=== PATIENT | female | born 1940 | race Caucasian/White ===

== ENCOUNTER 2019-01-25 12:50 | Outpatient (CLI) | payer MEDICARE, SELFPAY ==
[2019-01-25 14:04] LABS: Basophils Percent Auto 0.6 % (0.2-1.2); Eosinophils Absolute Auto 0.1 K/mm3 (0-0.3); Eosinophils Percent Auto 1.9 % (0-4.4); Hematocrit 42.8 % (37.0-47.0); Hemoglobin 14.3 g/dL (12.0-15.0); Immature Granulocyte Absolute 0.01 K/mm3 (0.00-0.031); Immature Granulocyte Percent A 0.2 % (0-0.5); Lymphocytes Absolute Auto 2.19 K/mm3 (0.9-3.2); Lymphocytes Percent Auto 35.2 % (18.3-44.2); Mean Corpuscular HGB Conc 33.4 g/dl (32-36); Mean Corpuscular Hemoglobin 32.7 pg (26-34); Mean Corpuscular Volume 97.9 fl (80-100); Mean Platelet Volume 9.7 fl (7.4-10.4); Monocytes Absolute Auto 0.6 K/mm3 (0.1-0.6); Monocytes Percent Auto 9.6 % (2.6-8.5); Neutrophils Absolute Auto 3.3 K/mm3 (1.3-6.7); Neutrophils Percent Auto 52.5 % (45.5-73.1); Platelet Count Result 285 k/mm3 (150-375); Red Blood Count 4.37 M/mm3 (4.2-5.4); Red Cell Distribution Width 12.4 % (11.5-14.5); White Blood Count 6.2 K/mm3 (4.5-10.0)
[2019-01-25 14:13] LABS: INR 0.9; Partial Thromboplastin Time 24.9 SECONDS (22.3-36.8); Prothrombin Time 11.7 Seconds (11.1-14.7)
== END 2019-01-25 12:51 | disposition home or self-care (01) ==
PROVIDERS: PCP Family Medicine; Visit Provider Urology
DX: Z01.818 Encounter for other preprocedural examination (principal); N81.10 Cystocele, unspecified
CPT/HCPCS: 36415; 85025; 85610; 85730; 86850; 86900; 86901; 87077; 87086; 87088; 87186

== ENCOUNTER 2019-10-25 14:17 | Outpatient (CLI) | payer MEDICARE, SELFPAY ==
[2019-10-25 15:09] LABS: Anion Gap 11.3 mmol/L (7-16); Blood Urea Nitrogen 20 mg/dL (7-17); Calcium 9.3 mg/dL (8.4-10.2); Carbon Dioxide 29 mmol/L (22-30); Chloride 102 mmol/L (98-107); Estimated Glomerular Filt Rate > 60; Glucose 87 mg/dL (65-105); Potassium 4.3 mmol/L (3.4-5.0); Sodium 138 mmol/L (137-145)
[2019-10-25 15:11] LABS: Basophils Percent Auto 0.4 % (0.2-1.2); Eosinophils Absolute Auto 0.2 K/mm3 (0-0.3); Eosinophils Percent Auto 2.5 % (0-4.4); Hematocrit 43.3 % (37.0-47.0); Hemoglobin 14.7 g/dL (12.0-15.0); Immature Granulocyte Absolute 0.01 K/mm3 (0.00-0.031); Immature Granulocyte Percent A 0.1 % (0-0.5); Lymphocytes Percent Auto 37.6 % (18.3-44.2); Mean Corpuscular HGB Conc 33.9 g/dl (32-36); Mean Corpuscular Hemoglobin 32.8 pg (26-34); Mean Corpuscular Volume 96.7 fl (80-100); Mean Platelet Volume 10.1 fl (7.4-10.4); Monocytes Absolute Auto 0.6 K/mm3 (0.1-0.6); Neutrophils Absolute Auto 3.5 K/mm3 (1.3-6.7); Neutrophils Percent Auto 50.4 % (45.5-73.1); Platelet Count Result 296 k/mm3 (150-375); Red Blood Count 4.48 M/mm3 (4.2-5.4); Red Cell Distribution Width 12.4 % (11.5-14.5); White Blood Count 6.9 K/mm3 (4.5-10.0)
[2019-10-25 18:38] LABS: Vitamin D 25 Hydroxy 33.7 ng/mL
== END 2019-10-25 14:18 | disposition home or self-care (01) ==
PROVIDERS: PCP Family Medicine; Visit Provider Physician Assistant Medical
DX: R09.89 Other specified symptoms and signs involving the circulatory and respiratory systems (principal); R42 Dizziness and giddiness; E55.9 Vitamin D deficiency, unspecified
CPT/HCPCS: 36415; 80048; 82306; 82607; 84443; 85025

== ENCOUNTER 2019-11-13 12:29 | Outpatient (CLI) | payer MEDICARE, SELFPAY ==
--- NOTE | ~2019-11-13 | US_ITS ---
EXAMINATION: US carotid duplex BI DATE: 11/13/2019 13:13 INDICATION: Other specified symptoms and signs involving the circulatory system. TECHNIQUE: Grayscale, color Doppler, and pulsed Doppler images of the cervical carotid arteries were obtained. The degree of vessel stenosis is placed in one of the following categories: normal, <50%, 5 0-69%, >=70% but less than near-occlusion, near-occlusion, or total occlusion. Note that percent sten osis relative to normal distal artery lumen diameter is indirectly measured from velocity measurement s as described by Tylor, et al. Radiology 2003; 229:340-346. COMPARISON: None. FINDINGS: RIGHT: The right common carotid artery (CCA) peak systolic velocity (PSV) is 81 cm/s. The right internal car otid artery (ICA) PSV is 128 cm/s. The right ICA end-diastolic velocity (EDV) is 53 cm/s. The right I CA/CCA PSV ratio is 1.6. Grayscale and color Doppler images yield an estimate of <50% diameter reduct ion from plaque in the ICA. There is antegrade flow in the right vertebral artery. LEFT: The left CCA PSV is 84 cm/s. The left ICA PSV is 160 cm/s. The left ICA EDV is 35 cm/s. The left ICA/ CCA PSV ratio is 1.9. Grayscale and color Doppler images yield an estimate of <50% diameter reduction from plaque in the ICA. There is antegrade flow in the left vertebral artery. IMPRESSION: 1. <50% stenosis in the right internal carotid artery. 2. <50% stenosis in the left internal carotid artery. Reviewed, dictated and finalized at location A.
== END 2019-11-13 12:30 | disposition home or self-care (01) ==
LOC: ANHIMG 12:34
PROVIDERS: PCP Family Medicine; Visit Provider Physician Assistant Medical
DX: R09.89 Other specified symptoms and signs involving the circulatory and respiratory systems (principal); R42 Dizziness and giddiness; I65.23 Occlusion and stenosis of bilateral carotid arteries
CPT/HCPCS: 93880

== ENCOUNTER 2019-11-19 13:23 | Outpatient (CLI) | payer MEDICARE, SELFPAY ==
[2019-11-19 14:37] LABS: Anion Gap 6 mmol/L (8-16); Blood Urea Nitrogen 21 mg/dL (7-17); Calcium 8.8 mg/dL (8.4-10.2); Carbon Dioxide 29 mmol/L (22-30); Chloride 103 mmol/L (98-107); Estimated Glomerular Filt Rate 54; Glucose 99 mg/dL (65-105); Potassium 4.1 mmol/L (3.4-5.0); Sodium 138 mmol/L (137-145)
== END 2019-11-19 13:24 | disposition home or self-care (01) ==
LOC: ANHLAB 13:28
PROVIDERS: PCP Family Medicine; Visit Provider Physician Assistant Medical
DX: N28.9 Disorder of kidney and ureter, unspecified (principal)
CPT/HCPCS: 36415; 80048

== ENCOUNTER 2019-12-16 14:35 | Outpatient (CLI) | payer MEDICARE, SELFPAY ==
--- NOTE | 2019-12-16 14:56 | ECHO_ITS ---
Patient Info Name: Sarah Armas Age: 79 years : 1940 Gender: Female Ht: 63 in Wt: 112 lbs BSA: 1.50 m2 HR: 90 bpm BP: 130 / 70 mmHg Heart Rhythm: Sinus Rhythm Technical Quality: Good Exam Date: 12/16/2019 3:08 PM Exam Location: [facility] Pulmonary Patient Status: Outpatient Admit Date: 12/16/2019 Staff Ordering Physician: Shanna Marrufo PAC Professor Of Food Biochemistry: Alo Aldridge RDCS Attending Provider: Shanna Marrufo Referring Physician: Yaron HAMILTON; Exam Type: CA echo doppler color flow Study Info Indications R06.02 - Shortness of breath Complete two-dimensional, color flow and Doppler transthoracic echocardiogram is performed. Strain analysis performed. History/Risk Factors Shortness of breath, Dizziness. Summary 1. Complete two-dimensional, color flow and Doppler transthoracic echocardiogram is performed. 2. Left ventricular chamber dimension is normal. 3. Left ventricular systolic function is normal, estimated at 60-65%. 4. There is mildly increased left ventricular wall thickness. 5. The left ventricular diastolic function is grade I diastolic dysfunction. 6. E/e' 8 is minimally elevated. 7. Global longitudinal strain is normal at -17.9%. 8. There is mild aortic valve sclerosis. 9. No pulmonary hypertension, estimated pulmonary arterial systolic pressure is 32 mmHg. Left Ventricle E/e' 8 is minimally elevated. Global longitudinal strain is normal at -17.9%. Left ventricular chamber dimension is normal. Left ventricular systolic function is normal, estimated at 60-65%. There is mildly increased left ventricular wall thickness. The left ventricular diastolic function is grade I diastolic dysfunction. Right Ventricle Right ventricular chamber dimension is normal. Right ventricular systolic function is normal. Left Atria Left atrial chamber dimension is normal. Right Atria Right atrial chamber dimension is normal. Aortic Valve The aortic valve is trileaflet. There is mild aortic valve sclerosis. There is no aortic valve stenosis. There is no aortic valve regurgitation. Pulmonic Valve There is no pulmonic regurgitation. Mitral Valve There is no mitral valve stenosis. There is no mitral valve regurgitation. Tricuspid Valve There is no tricuspid valve regurgitation. No pulmonary hypertension, estimated pulmonary arterial systolic pressure is 32 mmHg. Pericardium/Pleural There is no pericardial effusion. Inferior Vena Cava Normal inferior vena cava with >50% collapse upon inspiration consistent with normal right atrial pressure, 5 mmHg. Aorta The aortic root size at the sinus of Valsalva is normal. Left Ventricular Outflow Tract Name Value Normal LVOT 2D LVOT Diameter 1.7 cm LVOT Doppler LVOT Peak Gradient 4 mmHg LVOT Mean Gradient 2 mmHg LVOT VTI 20 cm LVOT VTI/AV VTI Ratio 0.7 LVOT Stroke Volume 48 ml LVOT CO 3.9 l/min LVOT CI
== END 2019-12-16 14:36 | disposition home or self-care (01) ==
PROVIDERS: PCP Family Medicine; Visit Provider Physician Assistant Medical
DX: R06.02 Shortness of breath (principal)
CPT/HCPCS: 93306

== ENCOUNTER → 2020-04-07 13:10 | Outpatient (CLI) | payer MEDICARE, SELFPAY ==
--- NOTE | ~2020-04-07 | MM_ITS ---
EXAMINATION: MM screening terri BI w ana HISTORY: Screening TECHNIQUE: Craniocaudal and mediolateral oblique 3-D tomosynthesis images were obtained and synthetic 2-D images were generated. CAD analysis was submitted and interpreted. COMPARISON: Comparison to multiple prior studies sequentially, with oldest reviewed study dated 08/04. BREAST PARENCHYMAL COMPOSITION: There are scattered areas of fibroglandular density. FINDINGS: There is no evidence of suspicious mass, calcification, or architectural distortion to sugg est malignancy in either breast. There has been no suspicious interval change. IMPRESSION: 1. No mammographic evidence of malignancy. 2. Recommend routine screening mammography in one year. BI-RADS Category 1: Negative Reviewed, dictated and finalized at location A. WRITER
== END ==
PROVIDERS: Visit Provider Obstetrics & Gynecology Gynecology
DX: Z12.31 Encounter for screening mammogram for malignant neoplasm of breast (principal)
CPT/HCPCS: 77063; 77067

== ENCOUNTER 2020-08-06 12:03 | Outpatient (CLI) | payer MEDICARE, SELFPAY ==
[2020-08-06 12:23] LABS: Basophils Absolute Auto 0.1 K/mm3 (0.0-0.1); Basophils Percent Auto 0.7 % (0.2-1.2); Eosinophils Absolute Auto 0.1 K/mm3 (0-0.3); Eosinophils Percent Auto 0.8 % (0-4.4); Hemoglobin 13.7 g/dL (12.0-15.0); Immature Granulocyte Absolute 0.02 K/mm3 (0.00-0.031); Immature Granulocyte Percent A 0.3 % (0-0.5); Lymphocytes Absolute Auto 2.78 K/mm3 (0.9-3.2); Mean Corpuscular HGB Conc 33.4 g/dl (32-36); Mean Corpuscular Hemoglobin 32.5 pg (26-34); Mean Corpuscular Volume 97.2 fl (80-100); Mean Platelet Volume 9.1 fl (7.4-10.4); Monocytes Absolute Auto 0.7 K/mm3 (0.1-0.6); Monocytes Percent Auto 8.9 % (2.6-8.5); Neutrophils Absolute Auto 3.8 K/mm3 (1.3-6.7); Neutrophils Percent Auto 51.3 % (45.5-73.1); Platelet Count Result 311 k/mm3 (150-375); Red Blood Count 4.22 M/mm3 (4.2-5.4); Red Cell Distribution Width 12.6 % (11.5-14.5); White Blood Count 7.3 K/mm3 (4.5-10.0)
[2020-08-06 12:36] LABS: CRP 0.8 mg/dL (<1.0); Rheumatoid Factor < 8.6 IU/ML (<12); Uric Acid 4.3 mg/dL (2.5-7.5)
[2020-08-06 13:52] LABS: Erythrocyte Sedimentation Rate 21 mm/hr (0-20)
== END 2020-08-06 12:04 | disposition home or self-care (01) ==
PROVIDERS: PCP Family Medicine; Visit Provider Orthopaedic Surgery
DX: M17.0 Bilateral primary osteoarthritis of knee (principal); M06.9 Rheumatoid arthritis, unspecified; E04.9 Nontoxic goiter, unspecified
CPT/HCPCS: 36415; 84550; 85025; 85652; 86038; 86140; 86430

== ENCOUNTER 2021-07-21 07:45 | Outpatient (CLI) | payer MEDICARE, SELFPAY ==
[2021-07-21 08:53] LABS: Basophils Absolute Auto 0.1 K/mm3 (0.0-0.1); Basophils Percent Auto 0.8 % (0.2-1.2); Eosinophils Absolute Auto 0.2 K/mm3 (0-0.3); Eosinophils Percent Auto 2.7 % (0-4.4); Hematocrit 41.5 % (37.0-47.0); Hemoglobin 13.5 g/dL (12.0-15.0); Immature Granulocyte Absolute 0.02 K/mm3 (0.00-0.031); Immature Granulocyte Percent A 0.3 % (0-0.5); Lymphocytes Absolute Auto 2.66 K/mm3 (0.9-3.2); Lymphocytes Percent Auto 42.8 % (18.3-44.2); Mean Corpuscular HGB Conc 32.5 g/dl (32-36); Mean Corpuscular Hemoglobin 32.8 pg (26-34); Mean Platelet Volume 9.7 fl (7.4-10.4); Monocytes Absolute Auto 0.6 K/mm3 (0.1-0.6); Neutrophils Absolute Auto 2.8 K/mm3 (1.3-6.7); Neutrophils Percent Auto 44.4 % (45.5-73.1); Platelet Count Result 263 k/mm3 (150-375); Red Blood Count 4.11 M/mm3 (4.2-5.4); Red Cell Distribution Width 12.8 % (11.5-14.5); White Blood Count 6.2 K/mm3 (4.5-10.0)
[2021-07-21 09:08] LABS: Anion Gap 7 mmol/L (8-16); Blood Urea Nitrogen 18 mg/dL (7-17); Calcium 8.7 mg/dL (8.4-10.2); Carbon Dioxide 27 mmol/L (22-30); Chloride 104 mmol/L (98-107); Cholesterol 257 mg/dL (0-200); Estimated Glomerular Filt Rate > 60; Glucose 86 mg/dL (65-110); HDL Direct 47 mg/dL; Sodium 138 mmol/L (137-145); Triglycerides 423 mg/dL (<150)
[2021-07-21 09:19] LABS: LDL Cholesterol Direct 131 mg/dL
== END 2021-07-21 07:46 | disposition home or self-care (01) ==
LOC: ANHLAB 07:49
PROVIDERS: PCP Family Medicine; Visit Provider Physician Assistant Medical
DX: E78.5 Hyperlipidemia, unspecified (principal); Z13.220 Encounter for screening for lipoid disorders; I10 Essential (primary) hypertension; E04.9 Nontoxic goiter, unspecified
CPT/HCPCS: 36415; 80048; 80061; 84443; 85025

== ENCOUNTER 2021-08-23 07:09 | Emergency (ER) | payer MEDICARE, SELFPAY ==
--- NOTE | ~2021-08-23 | XR_ITS ---
XR ankle RT min 3V DATE: 08/23/2021 07:30 INDICATION: Fall. Right ankle injury. TECHNIQUE: 4 views COMPARISON: None FINDINGS: There is prominent anterolateral soft tissue swelling of the right ankle. There is a linear oblique fracture of the lateral malleolus with less than one cortical width lateral displacement. The medial and posterior malleoli appear intact. The ankle mortise appears maintained. Plantar and posterior calcaneal enthesopathy. IMPRESSION: Minimally laterally displaced lateral malleolar fracture Reviewed, dictated and finalized at location A.
[2021-08-23 07:13] VITALS: BP 172/92; PULSE 88; RESP 18; TEMP 36.4; O2SAT 97
--- NOTE | 2021-08-23 07:22 | ED.LOWEXIN ---
HPI - Extremity Injury (Lower) General Chief Complaint: Extremity Injury, Lower Stated Complaint: Fall- ankle injury Time Seen by Provider: 08/23/21 07:13 History of Present Illness HPI Narrative: Patient was working out in the garden today when she lost her footing, and twisted her right ankle as she landed on some soft grass, she is denying any numbness or tingling anywhere, she is denying any pain when she does not use her foot, denies any injury anywhere else. Has not taken any medications for pain. Related Data Home Medications Medication Instructions Recorded Confirmed bimatoprost 0.01 % eye drops 1 drp ophthalmic (eye) QPM 01/25/19 07/20/21 (Lumigan) conjugated estrogens 0.625 mg 0.625 mg PO DAILY 01/25/19 07/20/21 tablet (Premarin) dorzolamide 22.3 mg-timolol 6.8 1 drp ophthalmic (eye) BID 01/25/19 07/20/21 mg/mL eye drops multivit with 1 tablet PO [id number] 01/25/19 07/20/21 sohtrbii-pocm-XD-lutein 8 mg iron-400 mcg-300 mcg tablet (Centrum Silver Women) netarsudil 0.02 % eye drops 1 drp RIGHT EYE QPM 01/25/19 07/20/21 (Rhopressa) omega 3-eql-nlh-fish oil 1,000 mg 1 cap PO DAILY 01/25/19 07/20/21 (120 mg-180 mg) capsule (Fish Oil) Allergies Allergy/AdvReac Type Severity Reaction Status Date / Time No Known Allergies Allergy Mild Verified 08/23/21 07:30 Review of Systems Review of Systems: M/S: Right ankle pain SKIN: No rash. [facility] Past Medical History Medical History Arthritis of right hip BMI (body mass index) 20.0-29.9 Cataract Surgical History Surgical History H/O: hysterectomy Hx of breast reduction, elective Hx of tonsillectomy Family History Family History Father Family history of premature coronary heart disease Acute myocardial infarction Tobacco abuse Mother Hypertension Sibling No problems noted. Social History Social History Second hand tobacco smoke exposure: Yes Alcohol intake: current Substance use: never Substance use type: does not use Additional occupation/education comments: Retired from [employer] Gender identity (if verbalized by the patient): Female Exam Narrative: EXAMINATION OF ORGAN SYSTEMS/BODY AREAS: Constitutional: Vital signs per nursing GENERAL:[No acute distress, non-toxic appearing.] HEAD: Normal with no signs of head trauma. LUNGS: Nonlabored breathing. HEART: Regular rate and rhythm EXT: Normal range of motion, some swelling to lateral aspect of right ankle, neurovascularly intact with normal DP pulses SKIN: No rashes or lesions. NEURO: Alert and oriented x 3. No gross focal sensory or strength deficits. PSYCH: Normal affect Course Vital Signs Vital signs: Vital Signs Temperature 97.5 F L 08/23/21 07:13 Pulse Rate 88 08/23/21 07:13 Respiratory Rate 18 08/23/21 07:13 Blood Pressure 172/92 H 08/23/21 07:13 Pulse Oximetry 97 08/23/21 07:13 Oxygen Delivery Room Air 08/23/21 07:13 Temperature 97.5 F L 08/23/21 07:13 Pulse Rate 84 08/23/21 09:19 Respiratory Rate 18 08/23/21 09:19 Blood Pressure 142/86 H 08/23/21 09:19 Pulse Oximetry 97 08/23/21 09:19 Oxygen Delivery Room Air 08/23/21 07:13 Procedures Orthopedic Splinting/Casting Injury #1: Splinting/Casting Date: 08/23/21 Side: right Lower Extremity Injury Location: ankle Lower Extremity Immobilizer: posterior splint and stirrup splint Splint: customized in ED Pre-Procedure Neuro Vascular Exam: normal Post-Procedure Neuro Vascular Exam: normal MDM - Extremity Injury (Lower) MDM Narrative Medical decision making narrative: 81-year-old female presenting with ankle pain after injury, exam does show swelling in the lateral malleo
[2021-08-23 08:17] VITALS: BP 148/85; PULSE 86; RESP 18; O2SAT 97
[2021-08-23 09:19] VITALS: BP 142/86; PULSE 84; RESP 18; O2SAT 97
== END 2021-08-23 09:22 | disposition home or self-care (01) ==
PROVIDERS: Emergency Provider Emergency Medicine; PCP Family Medicine
DX: S82.61XA Displaced fracture of lateral malleolus of right fibula, initial encounter for closed fracture (principal); M16.11 Unilateral primary osteoarthritis, right hip; H26.9 Unspecified cataract; Z77.22 Contact with and (suspected) exposure to environmental tobacco smoke (acute) (chronic); W18.39XA Other fall on same level, initial encounter; Y93.H2 Activity, gardening and landscaping
CPT/HCPCS: 29515; 73610; 99284

== ENCOUNTER 2021-08-30 09:15 | Outpatient (CLI) | payer MEDICARE, SELFPAY ==
[2021-08-30 10:43] LABS: Vitamin D 25 Hydroxy 42.4 ng/mL
== END 2021-08-30 09:16 | disposition home or self-care (01) ==
LOC: ANHLAB 09:18
PROVIDERS: PCP Family Medicine; Visit Provider Orthopaedic Surgery
DX: E55.9 Vitamin D deficiency, unspecified (principal)
CPT/HCPCS: 36415; 82306

== ENCOUNTER → 2021-11-11 14:59 | Outpatient (CLI) | payer MEDICARE, SELFPAY ==
--- NOTE | ~2021-11-11 | DEXA_ITS ---
Bone Density Report Name: KING LARSEN Age: 81 Sex: Female Ethnicity: White Date of : 1940 Indication: monitoring treatment; parental hip fracture; height loss; prior fracture; hysterectomy; postmenopausal Referring Provider: BRIANA WAN Study: Bone densitometry was performed. Exam Date: November 11, 2021 Accession number: [id number] Bone Density: Region BMD T-score Z-score Classification AP Spine (L1, L2) 1.101 1.1 3.6 Normal Femoral Neck (Left) 0.861 0.1 2.4 Normal Total Hip (Left) 0.995 0.4 2.5 Normal Femoral Neck (Right) 0.898 0.4 2.7 Normal Total Hip (Right) 0.934 -0.1 2.0 Normal Total Hip Mean 0.965 0.2 2.3 Normal World Health Organization criteria for BMD impression classify patients as: Normal (T-score at or above -1.0), Osteopenia (T-score between -1.0 and -2.5), or Osteoporosis (T-score at or below -2.5). 10-year Fracture Risk: FRAX not reported because: All T-scores for Spine Total, Hip Total, Femoral Neck at or above -1.0 Treated for osteoporosis Previous Exams: Region Exam Age BMD T-score BMD Change BMD Change Date g/cm2 vs Baseline vs Previous AP Spine(L1, L2) 11/11/2021 81 1.101 1.1 0.025* 0.025* 09/07/2017 77 1.076 0.9 Total Hip(Left) 11/11/2021 81 0.995 0.4 0.038* 0.038* 09/07/2017 77 0.957 0.1 Total Hip(Right) 11/11/2021 81 0.934 -0.1 0.020 0.020 09/07/2017 77 0.913 -0.2 *Denotes significance at 95% confidence level, LSC for AP Spine = 0.022 g/cm2, LSC for Total Hip = 0.027 g/cm2 Clinical Information Provided by Patient: Has had a low trauma fracture Parent has had a hip fracture Is being treated for osteoporosis Has used the following medications: HRT (i.e. estrogen/hormone therapy), MULT VIT Has the following medical conditions: Hysterectomy Patient maximum height was 63 Menopause Age: 30 No regular weight bearing exercise Drinks caffeinated beverages Onset of menses at age 14 Number of children 3 Impression: The patient has normal bone mass. The patient has risk factors, including: parental hip fracture, previous fracture. No significant bone loss was observed. Discussion: PATIENT UNDER TREATMENT WITH NO SIGNIFICANT BMD LOSS SINCE LAST EXAM. In an untreated patient, BMD typically declines with age. A lack of decline or gain is usually a sign that treatment is efficacious and fracture risk is reduced. It is important to
== END ==
PROVIDERS: PCP Family Medicine; Visit Provider Obstetrics & Gynecology Gynecology
DX: Z78.0 Asymptomatic menopausal state (principal)
CPT/HCPCS: 77080

== ENCOUNTER → 2022-03-14 12:21 | Outpatient (CLI) | payer MEDICARE, SELFPAY ==
--- NOTE | ~2022-03-14 | MM_ITS ---
EXAMINATION: MM screening terri BI w ana HISTORY: Screening TECHNIQUE: Craniocaudal and mediolateral oblique 3-D tomosynthesis images were obtained and synthetic 2-D images were generated. CAD analysis was submitted and interpreted. COMPARISON: Comparison to multiple prior studies sequentially, with oldest reviewed study dated 08/04. BREAST PARENCHYMAL COMPOSITION: There are scattered areas of fibroglandular density. FINDINGS: There is no evidence of suspicious mass, calcification, or architectural distortion to sugg est malignancy in either breast. There has been no suspicious interval change. IMPRESSION: 1. No mammographic evidence of malignancy. 2. Recommend routine screening mammography in one year. BI-RADS Category 1: Negative Reviewed, dictated and finalized at location A. ESTATE UNDERWRITER
== END ==
PROVIDERS: PCP Physician Assistant Medical; Visit Provider Obstetrics & Gynecology Gynecology
DX: Z12.31 Encounter for screening mammogram for malignant neoplasm of breast (principal)
CPT/HCPCS: 77063; 77067

== ENCOUNTER 2022-10-10 09:05 | Outpatient (CLI) | payer MEDICARE, SELFPAY ==
--- NOTE | ~2022-10-10 | US_ITS ---
EXAMINATION: US art doppler w press ANTONY RAINES DATE: 10/10/2022 10:31 INDICATION: Peripheral vascular disease. TECHNIQUE: Segmental pressures and plethysmographic and Doppler waveforms of the brachial and lower e xtremity arteries were obtained. COMPARISON: None. FINDINGS: Right and left brachial artery pressures of 140 mm Hg and 123 mm Hg, respectively, are concordant (no rmal difference <= 30 mmHg). The right high-thigh pressure index is 1.08 (normal > 1.2). The right ankle-brachial index (NAT) is 0 .61 (normal >= 0.9-1.0). The right great toe-brachial index (TBI) is 0.15 (normal >= 0.65). The right lower extremity segmental pressure gradients are increased between the upper thigh and lower thigh m easurements and between the lower thigh and below-knee measurements (normal gradients <= 20-30 mmHg b etween adjacent levels on the same leg or the same levels on the two legs). Arterial Doppler waveform s are biphasic from common femoral artery to the ankle. The left high-thigh pressure index is 1.02. The left NAT is 0.69. The left TBI is 0.24. The left lowe r extremity segmental pressure gradients are increased between the upper thigh and lower thigh measur ements. Arterial Doppler waveforms are biphasic from common femoral artery to the ankle. IMPRESSION: 1. 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 Reviewed, dictated and finalized at location A. IMPRESSION: 1. Moderately decreased ABIs, consistent with arterial occlusive disease, likel y multifocal.
== END 2022-10-10 09:06 | disposition home or self-care (01) ==
PROVIDERS: PCP Family Medicine; Visit Provider Orthopaedic Surgery
DX: I73.9 Peripheral vascular disease, unspecified (principal); R09.89 Other specified symptoms and signs involving the circulatory and respiratory systems
CPT/HCPCS: 93923

== ENCOUNTER 2022-11-16 07:55 | Outpatient (CLI) | payer MEDICARE, SELFPAY ==
--- NOTE | 2022-11-16 09:03 | ECG_ITS ---
Measurements Intervals [place] Rate: 71 P: 64 KS: 171 QRS: 3 QRSD: 118 T: 61 QT: 398 QTc: 433 Interpretive Statements SINUS RHYTHM LEFT BUNDLE BRANCH BLOCK NO PREVIOUS ECG AVAILABLE FOR COMPARISON Electronically Signed On 11-16-2022 11:50:36 CDT by Marleni Adamson M.D.
[2022-11-16 09:34] LABS: Basophils Absolute Auto 0.1 K/mm3 (0.0-0.1); Basophils Percent Auto 0.8 % (0.2-1.2); Eosinophils Absolute Auto 0.3 K/mm3 (0-0.3); Eosinophils Percent Auto 3.1 % (0-4.4); Hematocrit 38.7 % (37.0-47.0); Hemoglobin 12.4 g/dL (12.0-15.0); Immature Granulocyte Absolute 0.02 K/mm3 (0.00-0.031); Immature Granulocyte Percent A 0.3 % (0-0.5); Lymphocytes Percent Auto 31.5 % (18.3-44.2); Mean Corpuscular Hemoglobin 32.5 pg (26-34); Mean Corpuscular Volume 101.6 fl (80-100); Mean Platelet Volume 9.1 fl (7.4-10.4); Monocytes Absolute Auto 0.8 K/mm3 (0.1-0.6); Monocytes Percent Auto 10.5 % (2.6-8.5); Neutrophils Absolute Auto 4.3 K/mm3 (1.3-6.7); Neutrophils Percent Auto 53.8 % (45.5-73.1); Platelet Count Result 300 k/mm3 (150-375); Red Blood Count 3.81 M/mm3 (4.2-5.4); Red Cell Distribution Width 12.7 % (11.5-14.5); White Blood Count 7.9 K/mm3 (4.5-10.0)
[2022-11-16 09:38] LABS: Urine Cotinine NEGATIVE
[2022-11-16 09:39] LABS: Albumin Level 4.2 g/dL (3.5-5.1); Anion Gap 5 mmol/L (8-16); Blood Urea Nitrogen 28 mg/dL (7-17); Calcium 9.7 mg/dL (8.4-10.2); Carbon Dioxide 31 mmol/L (22-30); Chloride 101 mmol/L (98-107); Estimated Glomerular Filt Rate 60; Glucose 85 mg/dL (65-110); Potassium 4.6 mmol/L (3.4-5.0); Sodium 137 mmol/L (137-145)
[2022-11-16 09:40] LABS: Hemoglobin A1C 5.3 % (<5.7)
== END 2022-11-16 07:56 | disposition home or self-care (01) ==
PROVIDERS: PCP Physician Assistant Medical; Visit Provider Orthopaedic Surgery
DX: Z01.818 Encounter for other preprocedural examination (principal); M16.11 Unilateral primary osteoarthritis, right hip; Z79.899 Other long term (current) drug therapy
CPT/HCPCS: 80048; 80307; 82040; 83036; 85025; 87081; 93005

== ENCOUNTER 2022-11-29 11:03 | Outpatient (CLI) | payer MEDICARE, SELFPAY ==
--- NOTE | ~2022-11-29 | US_ITS ---
EXAMINATION: US carotid duplex BI DATE: 11/29/2022 11:48 INDICATION: Bilateral carotid bruits. TECHNIQUE: Grayscale, color Doppler, and pulsed Doppler images of the cervical carotid arteries were obtained. The degree of vessel stenosis is placed in one of the following categories: normal, <50%, 5 0-69%, >=70% but less than near-occlusion, near-occlusion, or total occlusion. Note that percent sten osis relative to normal distal artery lumen diameter is indirectly measured from velocity measurement s as described by Tylor, et al. Radiology 2003; 229:340-346. COMPARISON: Ultrasound 11/13/2019 FINDINGS: RIGHT: The right common carotid artery (CCA) peak systolic velocity (PSV) is 102 cm/s. The right internal ca rotid artery (ICA) PSV is 95 cm/s. The right ICA end-diastolic velocity (EDV) is 31 cm/s. The right I CA/CCA PSV ratio is 0.9. Grayscale and color Doppler images yield an estimate of <50% diameter reduct ion from plaque in the ICA. There is antegrade flow in the right vertebral artery. LEFT: The left CCA PSV is 97 cm/s. The left ICA PSV is 113 cm/s. The left ICA EDV is 36 cm/s. The left ICA/ CCA PSV ratio is 1.2. Grayscale and color Doppler images yield an estimate of <50% diameter reduction from plaque in the ICA. There is antegrade flow in the left vertebral artery. IMPRESSION: 1. <50% stenosis in the right internal carotid artery. 2. <50% stenosis in the left internal carotid artery. Reviewed, dictated and finalized at location A.
== END 2022-11-29 11:04 | disposition home or self-care (01) ==
PROVIDERS: PCP Physician Assistant Medical; Visit Provider Internal Medicine Cardiovascular Disease
DX: R09.89 Other specified symptoms and signs involving the circulatory and respiratory systems (principal); I65.23 Occlusion and stenosis of bilateral carotid arteries
CPT/HCPCS: 93880

== ENCOUNTER 2022-12-07 02:19 | Day surgery (SDC) | payer MEDICARE, SELFPAY ==
[2022-11-16 08:10] VITALS: BMI 20.5
[2022-11-16 08:45] VITALS: BP 162/67; PULSE 78; RESP 18; TEMP 36.8; O2SAT 100
--- NOTE | 2022-11-16 08:46 | PC.NURSE ---
Report to the Outpatient Waiting Room, entrance under the green pavilion located off [facility], at time __0600 on date __12/07/22 . Planned Procedure Time: _0730 . Time changes happen often and if your time is changed the preop area will call you the afternoon before. - You and your visitor will be asked to self-screen and do not enter if you have any COVID symptoms. - A mask is optional within the hospital at this time. Patients may have clear liquids (water, carbonated beverages, clear teas, apple juice) until 3 hours prior to surgery with a maximum of 20 ounces. - No food from midnight until time of surgery - Infants may have breast milk until 4 hours before surgery, formula 6 hours prior to surgery. - Children will be allowed to drink immediately following surgery. If applicable, please bring a bottle or sippy cup to assist with drinking. Juice, water, soda, and popsicles are readily available. For infants on formula, please bring formula the day of surgery. Pacifiers are allowed. Take the following medications with a SIP of water the morning of surgery: EYE DROP DO NOT STOP ANY OF YOUR OTHER PRESCRIPTION MEDICATIONS PRIOR TO SURGERY ?EXCEPT THE FOLLOWING Medications to discontinue per physician ____PT STATES ALL VITAMINS AND SUPPLEMENTS AND ALEVE 7 DAYS PRE OP PER DR GUARDADO.LAST DOSE 11/29/22 Please no make-up, nail equatorial guinean, hairspray, perfume, deodorant, or body powder the day of surgery. No jewelry (including any body piercings) or valuables the day of surgery, leave them at home. Please take a shower or bath the night before, or the morning of, surgery with an antibacterial soap. Wear comfortable, loose fitting clothing. Children are encouraged to wear pajamas. - Jewelry must be removed prior to entering the operating room. Rings and piercings that are not removed may be cut off. - The hospital will not accept responsibility for valuables. - Please leave all valuables, including medications, at home the day of surgery. If you are going home after surgery, a licensed fence post driver must drive you home. - NO public transportation without another adult if you receive anesthesia. - We recommend that an adult stay with you for 24 hours following discharge. - We also recommend that you do not drive, make important decision, drink alcoholic beverages, or take any drugs that were not prescribed by your health care provider for at least 24 hours after your discharge time. For Pediatric surgeries, we recommend two adults accompany the child home. Follow any additional instructions given to you from your surgeon. If you or anyone in your household have experienced Covid symptoms in the past week, please notify your surgeon or the nurse liaison at the phone number below for possible testing. VERBAL AND WRITTEN instructions given to _PATIENT and asked if any additional questions and then verbalized understanding. Patient advised to call surgeon office or pre surgery nurse liaison [phone] if any additional questions.
--- NOTE | 2022-12-05 12:10 | PM.IMHP ---
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 She is having rather severe symptoms on a daily basis. She has tried anti-inflammatories as well as using a cane. Neither of these have improved her symptoms in the hip. She has rather severe pain on a daily basis. It is affecting her ability to do her daily activities. Patient feels this point she would rather proceed with total hip arthroplasty rather continue nonsurgical treatment. Review of Systems Review of Systems: All systems reviewed & are unremarkable except as noted in HPI and below PMFSH Past Medical History Medical History Arthritis of right hip BMI (body mass index) 20.0-29.9 Cataract Surgical History Surgical History H/O: hysterectomy Hx of breast reduction, elective Hx of tonsillectomy Family History Family History Father Family history of premature coronary heart disease Acute myocardial infarction Tobacco abuse Mother Hypertension Sibling No problems noted. Social History Social History Smoking status: Never smoker Second hand tobacco smoke exposure: Yes Additional smoking assessment comments: DENIES ANY FORM OF TOBACCO USE Alcohol intake: current Substance use: never Substance use type: does not use Lack of Transportation: No Lack of Food: Never True Current Housing: I Have Housing Concerned About Future Housing: No Difficulty Paying Gas/Electric Bills: No Difficulty Paying for Meds: No Currently Unemployed: No Difficulty w/ Childcare or Family Care: No Living arrangements: with family Occupation/Education: retired Additional occupation/education comments: Retired from [employer] Gender identity (if verbalized by the patient): Female Spiritual care concerns: No Meds Home Medications and Allergies Home Medications Medication Instructions Recorded Confirmed Type conjugated estrogens 0.625 mg 0.625 mg PO DAILY 01/25/19 11/16/22 History tablet (Premarin) lzojiupb-paaq-dxov 8 mg-folic 400 1 tablet PO DAILY 01/25/19 11/16/22 History mcg-K 50 mcg-lutein 300 mcg tablet (Centrum Silver Women) acetaminophen 325 mg capsule 650 mg PO Q6H PRN pain #60 caps 08/23/21 11/16/22 Rx (Tylenol) meclizine 25 mg tablet 25 mg PO BID PRN Vertigo #14 tabs 01/15/22 11/16/22 Rx brimonidine 0.2 %-timolol 0.5 % 1 drp RIGHT EYE BID 11/16/22 11/16/22 History eye drops calcium citrate 250 mg 1 tablet PO DAILY 11/16/22 11/16/22 History calcium-vitamin D3 5 mcg (200 unit) tablet cyclosporine 0.05 % eye drops in a 1 drp EACH EYE PRN PRN Dry Eyes 11/16/22 11/16/22 History dropperette (Restasis) glucosamine sulfate 750 mg tablet 750 mg PO DAILY 11/16/22 11/16/22 History multivitamin with minerals 1 tablet PO DAILY 11/16/22 11/16/22 History (Hair,Skin and Nails tablet) naproxen sodium 220 mg capsule 220 mg PO BID PRN Pain 11/16/22 11/16/22 History (Aleve) vitamins A,C,X-ffzo-oneopi 2,148 2 tablet PO DAILY 11/16/22 11/16/22 History mcg-113 mg-45 mg-17.4 mg tablet (PreserVision AREDS) Allergies Allergy/AdvReac Type Severity Reaction Status Date / Time No Known Allergies Allergy Mild Verified 11/18/22 08:47 Exam Narrative: 82-year-old female very alert pleasant. She is 5 ft 2 and 150 lb. She walks with a slight limp. She has normal abduction strength to the right hip. There is crepitus of the hip with range of motion. Her greater trochanters nontender. She has flexion of the hip to 110? causing he
[2022-12-07] VITALS (18 sets, daily range): BP systolic 117–207; BP diastolic 50–100; PULSE 62–102; RESP 12–20; TEMP 36.3–37.2; O2SAT 92–100
--- NOTE | ~2022-12-07 | XR_ITS ---
EXAMINATION: XR hip RT 1V w AP pelvis DATE: 12/07/2022 11:28 INDICATION: Right hip arthroplasty TECHNIQUE: 2 views right hip FINDINGS: There is a right total hip arthroplasty in expected position. Subcutaneous gas with soft t issue swelling are consistent with recent surgery. IMPRESSION: 1. Recent right total hip arthroplasty. Reviewed, dictated and finalized at location B.
--- NOTE | ~2022-12-07 | XR_ITS ---
EXAMINATION: XR surgery orthopedic DATE: 12/07/2022 10:42 INDICATION: Total right hip arthroplasty. TECHNIQUE: A single intraoperative fluoroscopic view of the right hip was obtained. I was not present . Fluoroscopy exposure time was 62 seconds. COMPARISON: Right hip radiographs 06/18/2020 FINDINGS: There is a total right hip arthroplasty in near-anatomic alignment. IMPRESSION: 1. Total right hip arthroplasty in near-anatomic alignment. Reviewed, dictated and finalized at location A.
[2022-12-07] MEDS: ACETAMINOPHEN 500 MG TABLET 1000 MG PO ×4 (06:31→23:47)
[2022-12-07] MEDS: VANCOMYCIN 750 MG/NS 250 ML BAG 250 MG IVPB (06:50)
[2022-12-07] MEDS: LACTATED RINGERS 1,000 ML 30 ML IV CONT ×2 (06:50→10:56)
[2022-12-07] MEDS: TRANEXAMIC ACID 1,000MG/ISO100 1,000 MG/100 ML BAG 200 MG IVPB (07:09)
--- NOTE | 2022-12-07 07:10 | WPDANESEPPF ---
Anes - Initial Pre Proc Eval Procedure: Operation Date: 12/07/22 07:30 Proposed Procedures p Right Total Hip Arthroplasty, Anterior Approach - Foreign Bhandari MD Date/Time: 12/07/22 07:10 Surgeon: Foreign Bhandari MD Pre Op Diagnosis: O.A. Rt Hip Patient Data Age: 82 Gender: F Height: 1.55 m Weight: 48.9 kg Last Vital Signs Temp 37.2 C 12/07/22 06:54 Pulse 78 12/07/22 06:54 Resp 16 12/07/22 06:54 BP 138/61 12/07/22 06:54 Pulse Ox 100 12/07/22 06:54 O2 Del Method Room Air 12/07/22 06:54 Allergies Allergy/AdvReac Type Severity Reaction Status Date / Time No Known Allergies Allergy Mild Verified 12/07/22 06:25 Home Medications Medication Instructions Recorded Confirmed Type conjugated estrogens 0.625 mg 0.625 mg PO DAILY 01/25/19 12/07/22 History tablet (Premarin) xbvoobai-msif-mzld 8 mg-folic 400 1 tablet PO DAILY 01/25/19 12/07/22 History mcg-K 50 mcg-lutein 300 mcg tablet (Centrum Silver Women) acetaminophen 325 mg capsule 650 mg PO Q6H PRN pain #60 caps 08/23/21 12/07/22 Rx (Tylenol) meclizine 25 mg tablet 25 mg PO BID PRN Vertigo #14 tabs 01/15/22 12/07/22 Rx brimonidine 0.2 %-timolol 0.5 % 1 drp RIGHT EYE BID 11/16/22 12/07/22 History eye drops calcium citrate 250 mg 1 tablet PO DAILY 11/16/22 12/07/22 History calcium-vitamin D3 5 mcg (200 unit) tablet glucosamine sulfate 750 mg tablet 750 mg PO DAILY 11/16/22 12/07/22 History multivitamin with minerals 1 tablet PO DAILY 11/16/22 12/07/22 History (Hair,Skin and Nails tablet) naproxen sodium 220 mg capsule 220 mg PO BID PRN Pain 11/16/22 12/07/22 History (Aleve) vitamins A,C,X-rucx-qnnnbc 2,148 2 tablet PO DAILY 11/16/22 12/07/22 History mcg-113 mg-45 mg-17.4 mg tablet (PreserVision AREDS) Patient hx anesthesia problems: post op nausea/vomiting Family hx anesthesia problems: none Results Review: All pre-operative results and documents have been reviewed as part of the pre-operative evaluation. [facility] Past Medical History Medical History Arthritis of right hip BMI (body mass index) 20.0-29.9 Cataract Surgical History Surgical History H/O: hysterectomy Hx of breast reduction, elective Hx of tonsillectomy Family History Family History Father Family history of premature coronary heart disease Acute myocardial infarction Tobacco abuse Mother Hypertension Sibling No problems noted. Social History Social History Smoking status: Never smoker Second hand tobacco smoke exposure: Yes Additional smoking assessment comments: DENIES ANY FORM OF TOBACCO USE Alcohol intake: current Substance use: never Substance use type: does not use Lack of Transportation: No Lack of Food: Never True Current Housing: I Have Housing Concerned About Future Housing: No Difficulty Paying Gas/Electric Bills: No Difficulty Paying for Meds: No Currently Unemployed: No Difficulty w/ Childcare or Family Care: No Living arrangements: with family Occupation/Education: retired Additional occupation/education comments: Retired from [employer] Gender identity (if verbalized by the patient): Female Spiritual care concerns: No Anes - Eval Final PreProcedure Day of Procedure 12/07/22 07:10 Patient weight: normal Heart: regular rate and rhythm Lungs: clear to auscultation Airway: Mallampati scale class II Neurological: alert and oriented Last oral intake: >/= 8 hours ASA classification: II Emergent: no Anesthetic plan: proceed Anesthesia type and monitoring: general ETT and standard monitoring Results Review: All pre-operative results and documents have been reviewed as part of th
--- NOTE | 2022-12-07 07:17 | WPDHPUPDATE1 ---
History and Physical Update Update Date/Time: 12/07/22 07:17 History and Physical has been reviewed, including an updated exam of the patient. There are NO changes in the patient's condition. Risks, benefits, and alternatives have been discussed and questions answered. Patient agrees to proceed with procedure.
[2022-12-07] MEDS: ceFAZolin 2 GM/D5W 50 ML 2 GM/50 ML BAG IVPB (07:35)
[2022-12-07] MEDS: ceFAZolin SODIUM 1 GM VIAL 3 GM (08:23)
[2022-12-07] MEDS: TRANEXAMIC ACID 1,000 MG/10 ML AMPUL 1000 MG IV PUSH (10:22)
[2022-12-07] MEDS: ceFAZolin SODIUM 1 GM VIAL IV PUSH (10:22)
--- NOTE | 2022-12-07 10:44 | W.PM.PROC2 ---
Procedure Note - Detailed Date of Procedure 12/07/22 Pre-op Diagnosis O.A. Rt Hip Post-op Diagnosis Same Procedure Performed Right total hip arthroplasty direct anterior approach Surgeon Foreign Bhandari MD Tenter Feeder Trung Kumar Anesthesia General Description of Procedure Patient was brought to the operating room and general anesthesia was administered. She received weight based vancomycin 2 g of Ancef and 1 g of tranexamic acid preoperatively. Soft roll padding was applied to the feet and boots applied [facility] and the right hip prepped draped usual fashion. A 10 cm longitudinal incision was made starting about 3 cm lateral to the ASIS. Dissection was carried down to the fascia over the tensor fascia breana which was longitudinally incised over its midportion elevated off the anterior 1/2 of the TFL muscle and the interval between rectus femoris and TFL developed. Crossing vessels of the ascending lateral femoral circumflex vessels were ligated with suture divided. A retractor was placed anteromedial to the hip capsule the hip abducted internally rotated and the gluteus minimus carefully elevated off the lateral capsule. Inverted T capsulotomy was performed and femoral neck osteotomy made according to preoperative templating. Femoral head was removed without difficulty and measured about 42 mm in diameter. It was very sclerotic over its superior 50%. Some flattening noted as well. The acetabulum was exposed large labrum excised circumferentially and the little bit of remaining articular cartilage anterior inferiorly was removed with a curette. The leg was externally rotated extended and the tip of the lateral capsular flap was excised for improved exposure. The most anterior portion of the conjoined tendon covering the portion of the saddle that would need to be removed for placement of the stem was excised but we did not release the interval between piriformis and conjoined tendons. She seemed to have enough mobility without release. With the leg back in horizontal position external rotation and traction acetabulum was exposed. We medialized with a 38 Reamer and then reamed up with [id number] and we could see the we need to go to the next size up to reamed to the periphery. She had a very shallow acetabular fossa. We reamed to the 45 and the 45 trial went in easily and was not excessively tight. We opened the 46 cup Isabel and tried to insert this but we could not. We therefore very carefully lightly reamed with a 46 Reamer to smooth the periphery of the acetabular fossa and with this we were able to insert the 46 pinnacle cup and it was able to be seated fully with an excellent Press-Fit. Single screw was placed in the ilium with good purchase. The 28 mm inner diameter polyethylene liner neutral was placed without difficulty. The femur was externally rotated extended and we broached up to a size 2. We trialed and was too tight with +5 head the +1.5 head worked out well we took intraoperative x-ray which showed that we had I believe were equal leg lengths at this time. I felt that the offset would be better with the +5 which is what our preoperative templated plan was. We calcar planed and saw that the 2 broach was stable to torsion. I countersunk the 2 broach another 3 mm and we trialed with the 5 head and this had equal leg lengths and appropriate offset and excellent stability allowing ample Shuck but without dislocation. We calcar planed again and again confirmed torsional stability with the 2 broach. This was removed and the size 2 Actis standard offset stem was chosen and inserted fully. Her cortical bone was excellent and the cancellous bone in her proximal femur was of excellent quality as well. We trialed 1 more time with a +5 and sought appropriate stability and soft tissue tension. The 5 x 28 mm stainless steel head was applied to the clean and dried trunnion. The hip thoroughly irrigated with Ance
--- NOTE | 2022-12-07 11:08 | PM.OP ---
Procedure Note - Brief Procedure Note - Brief Date of procedure: 12/07/22 O.A. Rt Hip Procedure performed: Right anterior total hip arthroplasty Surgeon: JONATHAN Chapman Findings: 82-year-old female underwent right anterior total hip arthroplasty on 12/07. I was involved procedure including positioning the patient on the OR table as well as 1st assisting through the time of surgery. Total time spent was 3-1/2 hours Urine output (mL): -200.0
[2022-12-07] MEDS: fentaNYL CITRATE INJ (*CRX) 100 MCG/2 ML VIAL 25 MCG IV PUSH ×4 (11:19→12:45)
[2022-12-07] MEDS: hydrALAZINE HCL 20 MG/ML VIAL 5 MG IV PUSH (11:29)
[2022-12-07] MEDS: LABETALOL HCL INJ 100 MG/20 ML VIAL IV PUSH (11:48)
--- NOTE | 2022-12-07 13:53 | ADMGEN ---
This patient, Sarah Armas, was admitted to 3 [facility] Room 314-01. Patient/family oriented to hospital policies and general routines including ID bracelet, bed and alarms, visiting hours, pain management, procedures, bathroom and other care routines, personal items, smoking policy, room service/diet, and visiting hours. Information on how to activate the Rapid Response Team has been discussed. Patient/Family are encouraged to report perceived risks to care and to ask questions if they do not understand what they are told or what they should do.
[2022-12-07] MEDS: oxyCODONE HCL (*CRX) 2.5 MG TAB IR PO ×2 (14:08→17:52)
[2022-12-07] MEDS: SODIUM CHLORIDE 0.9% IV 1,000 ML 125 ML IV CONT (14:08)
[2022-12-07] MEDS: ceFAZolin 1 GM/NS 50 ML 1 GM/50 ML BAG IVPB ×2 (14:09→22:35)
--- NOTE | 2022-12-07 14:27 | PM.IMHP ---
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 Patient reported severe hip pain despite daily NSAID use and cane. No improvement in symptoms with interventions. Patient reports interference with ADLs and chose to pursue surgery. Today, reports post-op pain. Unable to rate pain or give descriptive location. States it feels like I need to move it and can't . +Stiffness and rigors. No decreased sensation. No other complaints. 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 Social History Social History (Updated 12/07/22 @ 14:59 by Molly Klein APRN) Social History: Currently lives at home with partner. Living will in place - sons are surrogate decision makers as of 12/07/22. Smoking status: Never smoker Second hand tobacco smoke exposure: No Additional smoking assessment comments: DENIES ANY FORM OF TOBACCO USE Alcohol intake: former Alcohol use details: social Substance use: never Substance use type: does not use Lack of Transportation: No Lack of Food: Never True Current Housing: I Have Housing Concerned About Future Housing: No Difficulty Paying Gas/Electric Bills: No Difficulty Paying for Meds: No Currently Unemployed: No Education: Don't Know Difficulty w/ Childcare or Family Care: No Living arrangements: with family Additional living arrangements comments: partner Occupation/Education: retired Additional occupation/education comments: Retired from [employer] Gender identity (if verbalized by the patient): Female Spiritual care concerns: No Meds Home Medications and Allergies Home Medications Medication Instructions Recorded Confirmed Type conjugated estrogens 0.625 mg 0.625 mg PO DAILY 01/25/19 12/07/22 History tablet (Premarin) otljmymh-cuxl-chhz 8 mg-folic 400 1 tablet PO DAILY 01/25/19 12/07/22 History mcg-K 50 mcg-lutein 300 mcg tablet (Centrum Silver Women) acetaminophen 325 mg capsule 650 mg PO Q6H PRN pain #60 caps 08/23/21 12/07/22 Rx (Tylenol) meclizine 25 mg tablet 25 mg PO BID PRN Vertigo #14 tabs 01/15/22 12/07/22 Rx brimonidine 0.2 %-timolol 0.5 % 1 drp RIGHT EYE BID 11/16/22 12/07/22 History eye drops calcium citrate 250 mg 1 tablet PO DAILY 11/16/22 12/07/22 History calcium-vitamin D3 5 mcg (200 unit) tablet glucosamine sulfate 750 mg tablet 750 mg PO DAILY 11/16/22 12/07/22 History multivitamin with minerals 1 tablet PO DAILY 11/16/22 12/07/22 History (Hair,Skin and Nails tablet) naproxen sodium 220 mg capsule 220 mg PO BID PRN Pain 11/16/22 12/07/22 History (Aleve) vitamins A,C,O-riih-fezbrj 2,148 2 tablet PO DAILY 11/16/22 12/07/22 History mcg-113 mg-45 mg-17.4 mg tablet (PreserVision AREDS) Allergies Allergy/AdvReac Type Severity Reaction Status Date / Time No Known Allergies Allergy Mild Verified 12/07/22
--- NOTE | 2022-12-07 15:35 | PCPTNOTE ---
Attempted PT evaluation, pt refused stating she can hardly keep her eyes open. RN aware.
--- NOTE | 2022-12-07 15:44 | WPDCN ---
Assessment and Plan Assessment and plan (1) History of total right hip arthroplasty: Code(s): Z96.641 - Presence of right artificial hip joint Status: Acute Assessment and Plan: Patient s/p R total arthroplasty, performed today 12/07/22 by Thony KIRKPATRICK. Primary care of patient by Ortho. ambulate with assistance and up to chair apply gel pads cardiac monitoring Q4H closed drain in place - management BID hip precautions in place use IS neurovasc checks - see order for intervals SCDs urinary catheter in place regular diet pain management: Tyl Q6H, morphine 2 mg, oxycodone 2.5 mg and narcan PRN zofran PRN for nausea monitor labs in AM - CBC and CMP bowel regimen: docusate/senna, polyethylene glycol maintenance fluids: NS 125 mL/hr hydroxyzine PRN for itching prophylactic atb - doxycycline 100 mg Q12H Plan Chronic Conditions -OA: continue home celecoxib, glucosamine. Hold Naproxen and home TYL. -Glaucoma: continue brimonidine-timolol. -Postmenopausal: continue Premarin PO -Supplements: continue Citracal, multivitamin, vitamin A/C/E/Zinc/Copper. Hold Hair/Skin/Nails vitamin. -Vertigo: continue home meclizine PRN. 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 Patient reported severe hip pain despite daily NSAID use and cane. No improvement in symptoms with interventions. Patient reports interference with ADLs and chose to pursue surgery. Today, reports post-op pain. Unable to rate pain or give descriptive location. States it feels like I need to move it and can't . +Stiffness and rigors. No decreased sensation. No other complaints. 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 Social History Social History (Updated 12/07/22 @ 14:59 by Molly Klein APRN) Social History: Currently lives at home with partner. Living will in place - sons are surrogate decision makers as of 12/07/22. Smoking status: Never smoker Second hand tobacco smoke exposure: No Additional smoking assessment comments: DENIES ANY FORM OF TOBACCO USE Alcohol intake: former Alcohol use details: social Substance use: never Substance use type: does not use Lack of Transportation: No Lack of Food: Never True Current Housing: I Have Housing Concerned About Future Housing: No Difficulty Paying Gas/Electric Bills: No Difficulty Paying for Meds: No Currently Unemployed: No Education: Don't Know Difficulty w/ Childcare or Family Care: No Living arrangements: with family Additional living arrangements comments: partner Occupation/Education: retired Additional occupation/education commen
[2022-12-07] MEDS: SENNA/DOCUSATE SODIUM TABLET 2 TAB PO (17:52)
[2022-12-07] MEDS: NONFORMULARY NUTRITIONAL SUPPLEMENT 1 EACH XX (18:06)
[2022-12-07] MEDS: VANCOMYCIN 1,000 MG/NS 250 ML 1,000 MG/250 ML BAG 250 MG IVPB (18:18)
[2022-12-07] MEDS: FAMOTIDINE 20 MG TABLET PO (20:54)
[2022-12-08] VITALS: PULSE 99
[2022-12-08 02:06] VITALS: BP 118/50; PULSE 104; RESP 16; TEMP 37.1; O2SAT 95
[2022-12-08 04:00] VITALS: PULSE 96
[2022-12-08 05:54] VITALS: BP 129/54; PULSE 96; RESP 16; TEMP 36.3; O2SAT 99
[2022-12-08] MEDS: ceFAZolin 1 GM/NS 50 ML 1 GM/50 ML BAG IVPB (06:04)
[2022-12-08] MEDS: ACETAMINOPHEN 500 MG TABLET 1000 MG PO ×2 (06:39→12:15)
[2022-12-08] MEDS: VANCOMYCIN 1,000 MG/NS 250 ML 1,000 MG/250 ML BAG 250 MG IVPB (06:40)
[2022-12-08 06:56] LABS: Basophils Percent Auto 0.1 % (0.2-1.2); Hematocrit 29.2 % (37.0-47.0); Hemoglobin 9.6 g/dL (12.0-15.0); Immature Granulocyte Absolute 0.06 K/mm3 (0.00-0.031); Immature Granulocyte Percent A 0.4 % (0-0.5); Lymphocytes Absolute Auto 1.64 K/mm3 (0.9-3.2); Lymphocytes Percent Auto 12.1 % (18.3-44.2); Mean Corpuscular HGB Conc 32.9 g/dl (32-36); Mean Corpuscular Volume 100.3 fl (80-100); Mean Platelet Volume 9.5 fl (7.4-10.4); Monocytes Absolute Auto 1.5 K/mm3 (0.1-0.6); Monocytes Percent Auto 10.7 % (2.6-8.5); Neutrophils Absolute Auto 10.4 K/mm3 (1.3-6.7); Neutrophils Percent Auto 76.7 % (45.5-73.1); Platelet Count Result 243 k/mm3 (150-375); Red Blood Count 2.91 M/mm3 (4.2-5.4); Red Cell Distribution Width 12.6 % (11.5-14.5); White Blood Count 13.6 K/mm3 (4.5-10.0)
[2022-12-08 07:07] LABS: Anion Gap 5 mmol/L (8-16); Blood Urea Nitrogen 18 mg/dL (7-17); Calcium 8.2 mg/dL (8.4-10.2); Carbon Dioxide 27 mmol/L (22-30); Chloride 106 mmol/L (98-107); Estimated CRCL calculation 37 ml/min; Estimated Glomerular Filt Rate > 60; Glucose 105 mg/dL (65-110); Potassium 3.8 mmol/L (3.4-5.0); Sodium 138 mmol/L (137-145)
--- NOTE | 2022-12-08 07:24 | PM.PNORT ---
Subjective Subjective Date/Time Seen: 12/08/22 07:24 Interval history: Postop day 1 patient is alert. She is afebrile vital signs are stable. Drain will be removed this morning and dressing changes. Dressing is dry. Patient was up overnight to the restroom several times. She was not alert enough yesterday to work with therapy. Neurovascularly she is intact. Pain is minimal. Plan will be to have patient work with therapy today both this morning and this afternoon if she continues to do well she will be discharged home later this afternoon. Objective Data Vital Signs Vital Signs: Vital Signs - 24 hr 12/07/22 10:56 12/07/22 11:00 12/07/22 11:15 Temperature 36.7 C Pulse Rate 68 71 71 Respiratory Rate 18 14 14 Blood Pressure 189/91 H 192/79 H 200/100 H Pulse Oximetry 100 100 100 Oxygen Delivery Simple Face Mask Simple Face Mask Simple Face Mask Oxygen Flow Rate 6 6 6 12/07/22 11:24 12/07/22 11:30 12/07/22 11:48 Temperature Pulse Rate 70 69 75 Respiratory Rate 13 Blood Pressure 207/88 H 199/70 H Pulse Oximetry 100 Oxygen Delivery Simple Face Mask Oxygen Flow Rate 6 12/07/22 12:00 12/07/22 12:30 12/07/22 12:45 Temperature Pulse Rate 73 65 62 Respiratory Rate 13 13 12 Blood Pressure 196/83 H 171/61 H 188/81 H Pulse Oximetry 100 92 100 Oxygen Delivery Room Air Nasal Cannula Nasal Cannula Oxygen Flow Rate 2 2 12/07/22 11:45 12/07/22 14:23 12/07/22 13:05 Temperature 36.3 C L Pulse Rate 75 76 Respiratory Rate 14 20 Blood Pressure 204/78 H 176/63 H Pulse Oximetry 100 100 Oxygen Delivery Simple Face Mask Room Air Oxygen Flow Rate 6 12/07/22 13:17 12/07/22 13:55 12/07/22 14:55 Temperature 36.3 C L 36.3 C L 36.4 C L Pulse Rate 77 74 85 Respiratory Rate 20 18 18 Blood Pressure 173/78 H 173/78 H 165/70 H Pulse Oximetry 100 100 100 Oxygen Delivery Oxygen Flow Rate 12/07/22 18:55 12/07/22 20:54 12/07/22 22:34 Temperature 36.9 C 36.7 C Pulse Rate 87 97 102 H Respiratory Rate 18 16 Blood Pressure 154/54 H 117/50 L Pulse Oximetry 100 97 Oxygen Delivery Oxygen Flow Rate 12/08/22 00:00 12/08/22 02:06 12/08/22 04:00 Temperature 37.1 C Pulse Rate 99 104 H 96 Respiratory Rate 16 Blood Pressure 118/50 L Pulse Oximetry 95 Oxygen Delivery Oxygen Flow Rate 12/08/22 05:54 Temperature 36.3 C L Pulse Rate 96 Respiratory Rate 16 Blood Pressure 129/54 L Pulse Oximetry 99 Oxygen Delivery Oxygen Flow Rate Intake/Output Intake/Output: Intake & Output 12/05/22 12/06/22 12/07/22 12/08/22 23:59 23:59 23:59 23:59 Intake Total 650 50 Balance 650 50 Meds/Results Medications: Active Medications Generic Name Dose Route Start Last Admin Trade Name Freq PRN Reason Stop Dose Admin Acetaminophen 1,000 mg 12/07/22 13:02 12/08/22 06:39 Acetaminophen 500 Mg Tablet PO 1,000 mg Q6HR [facility] Administration Brimonidine Tartrate 1 drop 12/07/22 17:00 12/07/22 18:19 Brimonidine Tartrate 0.2% Op Soln 5 Ml Btl RIGHT EYE Not Given BID [facility] Calcium Citrate 1 tablet 12/08/22 09:00 Calcium Citrate 315 Mg/Vitamin D 250 Units Tab PO DAILY [facility] Celecoxib 100 mg 12/08/22 09:00 Celecoxib 100 Mg Capsule PO DAILY [facility] Doxycycline Hyclate 100 mg 12/08/22 09:00 Doxycycline Hyclate 100 Mg Tablet PO Q12HR [facility] Enoxaparin Sodium 40 mg 12/08/22 09:00 Enoxaparin 40 Mg/0.4 Ml Syringe SUB-Q DAILY [facility] Famotidine 20 mg 12/07/22 21:00 12/07/22 20:54 Famotidine 20 Mg Tablet PO 20 mg Q12HR [facility] Administration Hydroxyzine HCl 50 mg 12/07/22 13:02 Hydroxyzine Hcl 25 Mg Tablet PO Q4H PRN Itching Cefazolin Sodium 1 gm in 50 mls @ 100 mls/hr 12/07/22 15:00 12/08/22 06:34 Ancef 1 Gm/Ns 50 Ml IVPB 12/08/22 07:29 Infused Q8H [facility] Infusion Vancomycin HCl 1,000 mg in 250 mls @ 250 mls/hr 12/07/22 19:00 12/08/22 06:40 Vancomycin 1,000 Mg/Ns 250 Ml IVPB 09
--- NOTE | 2022-12-08 07:30 | PM.DS ---
DS: Admitting Diagnosis Discharge Date 12/08 Admitting Diagnosis Right hip DJD DS: Discharge Diagnosis Discharge Diagnosis (1) History of total right hip arthroplasty: Code(s): Z96.641 - Presence of right artificial hip joint Status: Acute DS: Summary Hospital Course Hospital Course: 82-year-old female underwent right anterior total hip arthroplasty on 12/07. Underwent the procedure without complications. Postoperatively she has been afebrile vital signs are stable. She was up walking the day of surgery to the restroom. Pain is well controlled with scheduled Tylenol as well as oxycodone 2.5 mg. She is on a 10 day course of Celebrex 100 mg. She is weight-bearing as tolerated. She is on Lovenox 40 mg per day for DVT prophylaxis. We are not using Eliquis due to her low weight. Patient be discharged home on 12/08. We will check a CBC in 1 week. At the time of dictation CBC from the morning of postop day 1 and not been completed yet we will check on this before discharge. Patient was advised to keep leg elevated home prevent swelling. Her dressing is dry and intact her drain is out. Neurovascularly she is intact. Patient was advised any questions or concerns she should call the office. She be on a 10 day course of doxycycline as well as MiraLax and Senokot for constipation. Time Spent with Patient Time attestation: Total time spent providing and/or coordinating discharge services: DS: Data Data Completed and Pending Labs on day of discharge: Labs from last 24 hours 12/08/22 12/07/22 06:32 06:30 WBC Pending RBC Pending Hgb Pending Hct Pending MCV Pending MCH Pending MCHC Pending RDW Pending Plt Count Pending MPV Pending Immature Gran % (Auto) Pending Neut % (Auto) Pending Lymph % (Auto) Pending [place] % (Auto) Pending Eos % (Auto) Pending Baso % (Auto) Pending Lymph # (Auto) Pending [place] # (Auto) Pending Eos # (Auto) Pending Baso # (Auto) Pending Abs Immat Gran (auto) Pending Absolute Neuts (auto) Pending Absolute Nucleated RBC Pending Nucleated RBC % Pending Sodium 138 Potassium 3.8 Chloride 106 Carbon Dioxide 27 Anion Gap 5 L BUN 18 H D Creatinine 0.80 Estim Creat Clear Calc 37 Estimated GFR > 60 Glucose 105 Calcium 8.2 L Blood Type O Positive Antibody Screen Negative Discharge Plan Discharge Patient Disposition: Home, Self-Care Discharge Instructions: [facility], [place] [id number] [place] [address] POST-OPERATIVE DISCHARGE INSTRUCTIONS ANTERIOR TOTAL HIP ARTHROPLASTY 1. Move toes/feet up and down every hour while awake. 2. Be up walking every hour while awake. 3. Use cane in hand opposite of side of hip surgery or walker as comfort allows. Avoid sitting in a chair unless eating, receiving visitors or using the toilet. 4. When resting, lie on back with leg elevated above heart to minimize swelling. Significant swelling could indicate a blood clot and if this occurs, call the office (or go to the ER) to have a venous ultrasound performed. 5. Wound Care: Keep dry sponge on wound for 2 weeks. Use minimal tape. 6. Follow weight bearing status as instructed. 7. May shower with dressing off. Stand Alone Forms: General Discharge Instructions Follow-up/Referrals: Foreign Bhandari MD [Physician] - Keep Reg. Scheduled Appt. Discharge Medications: New acetaminophen 500 mg Tablet 1,000 mg PO Q6HR Qty: 90 0RF sennosides-docusate sodium [Senokot-S] 8.6-50 mg Tablet 2 tab-cap PO BID Qty: 60 0RF celecoxib [Celebrex] 100 mg Capsule 100 mg PO DAILY Qty: 10 0RF doxycycline hyclate 100 mg Tablet 100 mg PO Q12HR Qty: 20 0RF enoxaparin [Lovenox] 40 mg/0.4 mL Syringe 40 mg subcut DAILY Qty: 12 0RF polyethylene glycol 3350 [Miralax] 17 gram Powder In Packet 17 g PO QAM Qty: 30 0R
--- NOTE | 2022-12-08 08:24 | PC.NURSE ---
pulled hemovac drain, site intact, no drainage, dressing changed to gauze pads and minimal tape. patient tolerated well.
[2022-12-08] MEDS: OPTI-GEN TAB 2 TABLET PO (09:02)
[2022-12-08] MEDS: DOXYCYCLINE HYCLATE 100 MG TABLET PO (09:03)
[2022-12-08] MEDS: FAMOTIDINE 20 MG TABLET PO (09:03)
[2022-12-08] MEDS: SENNA/DOCUSATE SODIUM TABLET 2 TAB PO (09:03)
[2022-12-08] MEDS: CELECOXIB 100 MG CAPSULE PO (09:03)
[2022-12-08] MEDS: THERAPEUTIC MULTIVITAMINS/MINERALS TAB (*BKC) 1 TABLET PO (09:03)
[2022-12-08] MEDS: polyethylene glycoL 3350 17 GM POWD.PACK PO (09:03)
[2022-12-08] MEDS: ENOXAPARIN 40 MG/0.4 ML SYRINGE SUB-Q (09:11)
[2022-12-08 10:47] VITALS: BP 105/50; PULSE 92; RESP 16; TEMP 37.3; O2SAT 99
--- NOTE | 2022-12-08 11:51 | WPDANESPN ---
Anes - Prog Note Post-Op Date/Time: 12/08/22 11:51 Cardiovascular status: normal Respiratory status: normal Airway patency: baseline Mental status: baseline Post-Op hydration status: normal Vital Signs: Last Vital Signs Temp 37.3 C 12/08/22 10:47 Pulse 92 12/08/22 10:47 Resp 16 12/08/22 10:47 BP 105/50 L 12/08/22 10:47 Pulse Ox 99 12/08/22 10:47 O2 Del Method Room Air 12/08/22 10:14 O2 Flow Rate 2 12/07/22 12:45 Pain Score (VAS): 05/06 I/O: Intake & Output 12/07/22 12/08/22 12/08/22 23:59 07:59 15:59 Intake Total 350 50 280 Balance 350 50 280 Laboratory Tests 12/08/22 06:32 12/08/22 06:32 12/08/22 06:32 WBC 13.6 H RBC 2.91 L Hgb 9.6 L Hct 29.2 L MCV 100.3 H MCH 33.0 MCHC 32.9 RDW 12.6 Plt Count 243 MPV 9.5 Immature Gran % (Auto) 0.4 Neut % (Auto) 76.7 H Lymph % (Auto) 12.1 L [place] % (Auto) 10.7 H Eos % (Auto) 0.0 Baso % (Auto) 0.1 L Lymph # (Auto) 1.64 [place] # (Auto) 1.5 H Eos # (Auto) 0.0 Baso # (Auto) 0.0 Abs Immat Gran (auto) 0.06 H Absolute Neuts (auto) 10.4 H Absolute Nucleated RBC 0.0 Nucleated RBC % 0.0 Sodium 138 Potassium 3.8 Chloride 106 Carbon Dioxide 27 Anion Gap 5 L BUN 18 H D Creatinine 0.80 Estim Creat Clear Calc 37 Estimated GFR > 60 Glucose 105 Calcium 8.2 L Post-procedural complaints: none Patient Feedback: Patient satisfied with anesthetic care.
== END 2022-12-08 13:00 | disposition home or self-care (01) ==
LOC: ANHSURGERY 06:02 → ANH3MEDSUR 13:08
PROVIDERS: Physician Assistant Surgical; PCP Physician Assistant Medical; Visit Provider Orthopaedic Surgery
PROC: (CPT 27130; principal; 2022-12-07 07:30)
DX: M16.11 Unilateral primary osteoarthritis, right hip (principal); H40.9 Unspecified glaucoma; R42 Dizziness and giddiness; H54.62 Unqualified visual loss, left eye, normal vision right eye; Z78.0 Asymptomatic menopausal state
CPT/HCPCS: 27130; 36415; 73501; 80048; 85025; 86850; 86900; 86901; 97110; 97161; 97165; 99199; A9270; C1776; J0171; J0330; J0360; J0690; J1100; J1170; J1650; J1885; J2270; J2405; J2704; J2795; J3010; J3370; J7030; J7040; J7120

== ENCOUNTER 2022-12-21 11:13 | Outpatient (CLI) | payer MEDICARE, SELFPAY ==
[2022-12-21 12:29] LABS: Basophils Absolute Auto 0.1 K/mm3 (0.0-0.1); Basophils Percent Auto 0.7 % (0.2-1.2); Eosinophils Absolute Auto 0.3 K/mm3 (0-0.3); Eosinophils Percent Auto 3.1 % (0-4.4); Hematocrit 34.3 % (37.0-47.0); Hemoglobin 10.8 g/dL (12.0-15.0); Immature Granulocyte Absolute 0.03 K/mm3 (0.00-0.031); Immature Granulocyte Percent A 0.4 % (0-0.5); Lymphocytes Absolute Auto 2.53 K/mm3 (0.9-3.2); Lymphocytes Percent Auto 31.6 % (18.3-44.2); Mean Corpuscular HGB Conc 31.5 g/dl (32-36); Mean Corpuscular Hemoglobin 32.1 pg (26-34); Mean Corpuscular Volume 102.1 fl (80-100); Monocytes Absolute Auto 0.6 K/mm3 (0.1-0.6); Monocytes Percent Auto 7.5 % (2.6-8.5); Neutrophils Absolute Auto 4.5 K/mm3 (1.3-6.7); Neutrophils Percent Auto 56.7 % (45.5-73.1); Platelet Count Result 425 k/mm3 (150-375); Red Blood Count 3.36 M/mm3 (4.2-5.4); Red Cell Distribution Width 13.4 % (11.5-14.5)
== END 2022-12-21 11:14 | disposition home or self-care (01) ==
PROVIDERS: PCP Physician Assistant Medical; Visit Provider Physician Assistant Surgical
DX: Z96.641 Presence of right artificial hip joint (principal)
CPT/HCPCS: 36415; 85025

== ENCOUNTER 2023-06-15 08:19 | Outpatient (CLI) | payer MEDICARE, SELFPAY ==
[2023-06-15 08:56] LABS: Hematocrit 41.5 % (37.0-47.0); Hemoglobin 13.3 g/dL (12.0-15.0); Mean Corpuscular Hemoglobin 31.8 pg (26-34); Mean Corpuscular Volume 99.3 fl (80-100); Mean Platelet Volume 9.5 fl (7.4-10.4); Platelet Count Result 265 k/mm3 (150-375); Red Blood Count 4.18 M/mm3 (4.2-5.4); Red Cell Distribution Width 13.4 % (11.5-14.5); White Blood Count 6.5 K/mm3 (4.5-10.0)
[2023-06-15 09:27] LABS: Cholesterol 214 mg/dL (0-200); HDL Direct 48 mg/dL; Triglycerides 430 mg/dL (<150)
[2023-06-15 09:38] LABS: LDL Cholesterol Direct 113 mg/dL
[2023-06-15 10:09] LABS: Vitamin D 25 Hydroxy 55.4 ng/mL
[2023-06-16 05:22] LABS: Iron 94 ug/dL (37-170)
[2023-06-16 11:10] LABS: Percent Iron Saturation 27 % (20-50)
== END 2023-06-15 08:20 | disposition home or self-care (01) ==
LOC: ANHLAB 08:23
PROVIDERS: PCP Family Medicine; Visit Provider Nurse Practitioner Family
DX: E04.9 Nontoxic goiter, unspecified (principal); E55.9 Vitamin D deficiency, unspecified; D64.9 Anemia, unspecified; I10 Essential (primary) hypertension; E78.2 Mixed hyperlipidemia
CPT/HCPCS: 36415; 80061; 82306; 83540; 83550; 84443; 85027

== ENCOUNTER 2023-11-14 10:54 | Outpatient (CLI) | payer MEDICARE, SELFPAY ==
--- NOTE | ~2023-11-14 | MM_ITS ---
EXAMINATION: MM screening terri BI w ana HISTORY: Screening TECHNIQUE: Craniocaudal and mediolateral oblique 3-D tomosynthesis images were obtained and synthetic 2-D images were generated. CAD analysis was submitted and interpreted. COMPARISON: Comparison to multiple prior studies sequentially, with oldest reviewed study dated 08/17. BREAST PARENCHYMAL COMPOSITION: Not dense: There are scattered areas of fibroglandular density. FINDINGS: There is no evidence of suspicious mass, calcification, or architectural distortion to sugg est malignancy in either breast. There has been no suspicious interval change. IMPRESSION: 1. No mammographic evidence of malignancy. 2. Recommend routine screening mammography in one year. Reviewed, dictated and finalized at location B.
== END 2023-11-14 10:55 ==
LOC: MICIMG 10:55
PROVIDERS: PCP Family Medicine; Visit Provider Nurse Practitioner
DX: Z12.31 Encounter for screening mammogram for malignant neoplasm of breast (principal)
CPT/HCPCS: 77063; 77067

== ENCOUNTER 2024-04-23 10:02 | Outpatient (CLI) | payer MEDICARE, SELFPAY ==
--- NOTE | ~2024-04-23 | DEXA_ITS ---
Bone Density Report Name: KING LARSEN Age: 83 Sex: Female Ethnicity: White Date of : 1940 Indication: postmenopausal; screening for osteoporosis; parental hip fracture; height loss; hysterectomy; Referring Provider: BRIANA WAN Study: Bone densitometry was performed. Exam Date: April 23, 2024 Accession number: [id number] Bone Density: Region BMD T-score Z-score Classification AP Spine(L2, L3, L4) 1.307 2.1 4.9 Normal Femoral Neck (Left) 0.859 0.1 2.5 Normal Total Hip (Left) 0.953 0.1 2.3 Normal World Health Organization criteria for BMD impression classify patients as: Normal (T-score at or above -1.0), Osteopenia (T-score between -1.0 and -2.5), or Osteoporosis (T-score at or below -2.5). 10-year Fracture Risk: FRAX not reported because: All T-scores for Spine Total, Hip Total, Femoral Neck at or above -1.0 Previous Exams: Region Exam Age BMD T-score BMD Change BMD Change Date g/cm2 vs Baseline vs Previous AP Spine (L2-L4) 04/23/2024 83 1.307 2.1 0.213 (19.5%)* 0.217 (20.0%)# 08/13/2014 74 1.089 0.1 -0.004 (-0.4%) -0.004 (-0.4%) 06/03/2011 71 1.093 0.1 Total Hip(Left) 04/23/2024 83 0.953 0.1 0.026 (2.8%) -0.007 (-0.7%) 08/13/2014 74 0.960 0.1 0.033 (3.6%)# 0.033 (3.6%)# 06/03/2011 71 0.927 -0.1 *Denotes significance at 95% confidence level, LSC for AP Spine = 0.022 g/cm2, LSC for Total Hip = 0.027 g/cm2 # Denotes dissimilar scan types or analysis methods Clinical Information Provided by Patient: Parent has had a hip fracture Has used the following medications: Vitamin D, Calcium Has the following medical conditions: Hysterectomy Patient maximum height was 63 No regular weight bearing exercise Drinks caffeinated beverages Onset of menses at age 13 Number of children 3 Impression: The patient has normal bone mass. The patient has risk factors, including: parental hip fracture. No significant bone loss was observed. Discussion: LOW RISK OF FRACTURE; BONE DENSITY IS WELL ABOVE THE MINIMUM DESIRABLE LEVEL AND ABOVE AVERAGE FOR AGE AND SEX AT ALL SKELETAL SITES TESTED. This person's bone density is above expected limits for age and sex. This is rarely clinically significant, but should be pursued if there are significant musculoskeletal complaints. The patient should follow a healthful lifestyle (good nutrition with adequate calcium and vitamin D, and appropriate weight-bearing exercise). Follow-Up: Consider repeating this study in 5 years or sooner if there is some new clinical indication. Reported by: SHEREE on 04/23/2024 10:32:00 AM. Reviewed, dictated and finalized at location Bo ASHLEY
--- OUTSIDE RECORDS SUMMARY | 2024-04-23 10:52 | XMS_ITS | Clinical Summary ---
Author Organization [facility] [address] Address [address] [place] [address] Care Team Providers Care Media Account Executive Name Role Phone Marc Hooks MD Primary Care Provider [phone] Allergies No known active allergies Medications dorzolamide-sally oloL (COSOPT) 22.3-6.8 mg/mL ophthalmic solution INT 1 GTT INTO OU BID 0 Active Lumigan 0.01 % ophthalmic drops INSTILL 1 DROP IN OU QHS 0 Active estrogens, conjugated, (PREMARIN) 0.625 mg tablet Acti ve naproxen (ALEVE) 220 mg tablet Take by mouth 2 (two) times a day with meals Active multivit-minera j-qavb-mgljvh tablet Take by mouth Active ANAND BIOTIN ORAL Take by mouth Active fp-1-edg-epa-fi sh oil-vit D3 300-1,000-1,000 mg-mg-unit capsule Take by mouth Active brimonidine-sally oloL (COMBIGAN) 0.2-0.5 % ophthalmic solution Administer 1 drop into the right eye 2 (two) times a day 4 Active carboxymethylce llulose (REFRESH LIQUIGEL) 1 % ophthalmic liquid gel drops Administer 1 drop into the left eye 2 (two) times a day Active acetaminophen ER (TYLENOL) 650 mg 8 hr tablet Take 1 tablet (650 mg total) by mouth nightly as needed for pain Active Active Problems Problem Noted Date Diagnosed Date Bilateral carotid bruits 11/15/2022 Left endophthalmia 03/20/2022 Assessment & Plan (03/21/2022 11:01 AM MANAGER ACCESS): #Bleb-related endophthalmitis OS -Patient seen by [employer] and s/p trab OS 4 weeks prior; seen 03/15 with concern for blebitis/bled-related endophtalmitis and seen by glaucoma/retina team at [facility] at that time. At that visit VA was 20/100. -S/p intravitreal injection of vancomycin and ceftaz by retina provider on 03/15 with cultures growing Staph sanguinis (sensitive to vancomycin, cefotaxime, ceftriaxone, clindamycin, and penicillin) as pictured above as well. -Patient had been following up since 03/15 and noted to have worsening vision (CFs ->bare HM/LP) and with more inflammation. Per glaucoma provider, patient's hypopyon was improving in size when seen today but no retina service available for further f/u over the weekend. -03/19 w/ VA LP OS, still with layered hypopyon, significant AC inflammation w/ fibrin and anterior lens capsular opacification, and posterior synechiae. B-scan with vitritis (no comparison from prior). -s/p intravitreal vancomycin and ceftazidime 03/19; blnnxy-ij-hgztlqtk exam 03/20 - 03/21 VA improved to HM, IOP 18. Nearly resolved hypopyon with clearer view to AC. Does have clumped fibrin on anterior lens capsule (see photos); still no view to back. Vitritis overall stable, possibly condensing a little more. ?? Plan: -Continue vigamox q1h -Continue combigan BID OS -Continue BID OS (sent with sample of cyclogyl as atropine unavailable in clinic) -Pt to follow with local [facility] and retina specialist tomorrow ([employer]). Discussed that we would be happy to continue to follow her here. She would like to follow locally first. Provided card with contact information for [facility]. (Patient's son can be reached at [phone]). -Discussed possible need for further injections and/or surgery as well moving forward as well as unclear visual prognosis again today. Patient and family voiced understanding. Assessment & Plan (03/20/2022 10:37 AM MANAGER ACCESS): #Bleb-related endophthalmitis OS -Patient seen by [facility] and s/p trab OS 4 weeks prior; seen 03/15 with concern for blebitis/bled-related endophtalmitis and seen by glaucoma/retina team at [facility] at that time. At that visit VA was 20/100. -S/p intravitreal injection of vancomycin and ceftaz by retina provider on 03/15 with cultures growing Staph sanguinis (sensitive to vancomycin, cefotaxime, ceftriaxone, clindamycin, and penicillin) as pictured above as well. -Patient had been following up since 03/15 and noted to have worsening vision (CFs ->bare HM/LP) and with more inflammation. Per glaucoma provider, patient's hypopyon was improving in size when seen today but no retina service available for further f/u over the weekend. -03/19 w/ VA LP OS, still with layered hypopyon, significant AC inflammation w/ fibrin and anterior lens capsular opacification, and posterior synechiae. B-scan with vitritis (no comparison from prior). -s/p intravitreal vancomycin and ceftazidime 03/19 -Today stable vision (LP), layered hypopyon slightly improved in size but still present. B-scan with fairly stable vitreous debris. ?? Plan: -continue vigamox q1h -continue combigan BID OS -will add atropine BID OS (sent with sample of cyclogyl as atropine unavailable in clinic) -RTC 03/21 10AM at [facility] (patient's son can be reached at [phone]). -Discussed possible need for further injections and/or surgery as well moving forward as well as unclear visual prognosis in detail today. Patient and family voiced understanding. Per patient/family, they would likely continue their care locally with retina specialist after the . However if unable to get in contact with them on Monday will come here for subsequent follow-up. GUTIERREZ (dyspnea on exertion) 12/30/2019 PSVT (paroxysmal supraventricular tachycardia) 1 LBBB (left bundle branch block) 12/30/2019 Family history of premature CAD 12/30/2019 Dizziness and giddiness 12/30/2019 Abnormal echocardiogram 12/30/2019 Surgical History Surgery Date Site/Laterality Comments TONSILLECTOMY HYSTERECTOMY STAPEDECTOMY Right COMBINED REDUCTION MAMMAPLASTY W/ ABDOMINOPLASTY CATARACT EXTRACTION ABDOMINAL SACROCOLPOPEXY Medical History Medical History Date Comments Basal cell carcinoma Cataracts, bilateral Glaucoma Family History Medical History Relation Name Comments Heart attack Father bowel obstruction surgery Mother No Known Problems Sister Relation Name Status Comments Father (Age 60) Mother (Age 93) Sister Alive Social History Tobacco Use Types Packs/Day Years Used Date Smoking Tobacco: Never Smokeless Tobacco: Never Alcohol Use Standard Drinks/Week Comments Yes 1 (1 standard drink = 0.6 oz pur e alcohol) monthly Personal Safety Answer Date Recorded Getting School Help Needed Not on file 05/20 Comments Unknown Sex and Gender Information Value Date Recorded Sex Assigned at Not on file Legal Sex Female 12:11 AM MANAGER ACCESS Gender Identity Not on file Sexual Orientation Not on file Obstetrics History Last Filed Vital Signs Vital Sign Reading Time Taken Comments Blood Pressure 136/70 05/23/2023 1:41 PM MANAGER ACCESS Pulse 74 05/23/2023 1:21 PM MANAGER ACCESS Temperature 37.5 ??C (99.5 ??F) 03/19/2022 11:[address] Respiratory Rate 15 03/19/2022 11:17 AM MANAGER ACCESS Oxygen Saturation 98% 05/23/2023 1:21 PM MANAGER ACCESS Inhaled Oxygen Concentration - - Weight 49.4 kg (109 lb) 05/23/2023 1:21 PM MANAGER ACCESS Height 160 cm (5' 3 ) 05/23/2023 1:21 PM MANAGER ACCESS Body Mass Index 19.31 05/23/2023 1:21 PM MANAGER ACCESS Plan of Treatment Health Maintenance Due Date Last Done Comments Depression Screening 1942 Fall Risk Assessment 1940 Osteoporosis Screening-Bone Density Scan 1940 Hepatitis B Screening 1960 Zoster Vaccine (1 of 2) 1992 Pneumococcal vaccine 65+ (1 of 1 - PCV) 05/29/2007 Well Visit 65+ 05/29/2007 Influenza Vaccine (#1) 2023 9, 01/29/2018, 12/28/2016, Additional history exists DTaP/Tdap/Td Vaccine (2 - Td or Tdap) 07/31/2028 07/31/2018 Insurance MEDICARE [facility] MEDICARE [facility] MEDICARE Care Teams Media Account Executive Relationship Specialty Start Date End Date Marc Hooks MD PCP - General Family Medicine 12/20/19
--- OUTSIDE RECORDS SUMMARY | 2024-04-23 10:52 | XMS_ITS | Referral Summary ---
Author Organization [facility] [address] Address [address] [place] [address] Care Team Providers Care Fireworks Assembly Supervisor Name Role Phone Marc Hooks MD Primary Care Provider [phone] Allergies No known active allergies Medications dorzolamide-sally oloL (COSOPT) 22.3-6.8 mg/mL ophthalmic solution INT 1 GTT INTO OU BID 0 Active Lumigan 0.01 % ophthalmic drops INSTILL 1 DROP IN OU QHS 0 Active estrogens, conjugated, (PREMARIN) 0.625 mg tablet Acti ve naproxen (ALEVE) 220 mg tablet Take by mouth 2 (two) times a day with meals Active multivit-minera c-lnel-soagno tablet Take by mouth Active ANAND BIOTIN ORAL Take by mouth Active lb-7-lvh-epa-fi sh oil-vit D3 300-1,000-1,000 mg-mg-unit capsule Take [...] 03/20/2022 Assessment & Plan (03/21/2022 11:01 AM BILINGUAL MEDICAL RECEPTIONIST): #Bleb-related endophthalmitis OS -Patient seen by [employer] and s/p trab OS 4 weeks prior; seen 03/15 with concern for blebitis/bled-related endophtalmitis and seen by glaucoma/retina team at [facility] at that time. At that visit VA [...] prior). -s/p intravitreal vancomycin and ceftazidime 03/19; jbbzod-jr-dpdvdgat exam 03/20 - 03/21 VA improved to [...] with local [facility] and retina specialist tomorrow ([employer]). Discussed that we would be happy to continue to follow her here. She would like to follow locally first. Provided card with contact information for [facility]. (Patient's son can be reached at [phone]). -Discussed possible need for further injections and/or surgery as well moving forward as well as unclear visual prognosis again today. Patient and family voiced understanding. Assessment & Plan (03/20/2022 10:37 AM BILINGUAL MEDICAL RECEPTIONIST): #Bleb-related endophthalmitis OS -Patient seen by [facility] and s/p trab OS 4 weeks prior; seen 03/15 with concern for blebitis/bled-related endophtalmitis and seen by glaucoma/retina team at [facility] at that time. At that visit VA [...] unavailable in clinic) -RTC 03/21 10AM at [facility] (patient's son can be reached at [phone]). -Discussed possible need for further injections and/or [...] Dizziness and giddiness 12/30/2019 Abnormal echocardiogram 12/30/2019 Social History Tobacco Use Types Packs/Day Years [...] on file Legal Sex Female 12:11 AM BILINGUAL MEDICAL RECEPTIONIST Gender Identity Not on file Sexual Orientation Not on file Last Filed Vital Signs Vital Sign Reading Time Taken Comments Blood Pressure 136/70 05/23/2023 1:41 PM BILINGUAL MEDICAL RECEPTIONIST Pulse 74 05/23/2023 1:21 PM BILINGUAL MEDICAL RECEPTIONIST Temperature 37.5 ??C (99.5 ??F) 03/19/2022 11:[address] Respiratory Rate 15 03/19/2022 11:17 AM BILINGUAL MEDICAL RECEPTIONIST Oxygen Saturation 98% 05/23/2023 1:21 PM BILINGUAL MEDICAL RECEPTIONIST Inhaled Oxygen Concentration - - Weight 49.4 kg (109 lb) 05/23/2023 1:21 PM BILINGUAL MEDICAL RECEPTIONIST Height 160 cm (5' 3 ) 05/23/2023 1:21 PM BILINGUAL MEDICAL RECEPTIONIST Body Mass Index 19.31 05/23/2023 1:21 PM BILINGUAL MEDICAL RECEPTIONIST Plan of Treatment Not on file Insurance MEDICARE [facility] MEDICARE [facility] MEDICARE Care Teams Fireworks Assembly Supervisor Relationship Specialty Start Date End Date Marc Hooks MD PCP - General Family Medicine 12/20/19
--- OUTSIDE RECORDS SUMMARY | 2024-04-23 10:53 | XMS_ITS | Continuity of Care Document ---
Author Organization [facility] [place] [address] [place] [phone] Phone Care Team Providers Care Cephalometric Tracer Name Role Phone Wil Maldonado Unavailable Unavailable Procedures Procedure Date Visual Field Examination-Professional Monica l- Visual Field Examination(s) Office/outpatient Visit, Est Office/outpatient Visit, Est Optic Nerve Head Eval IPO Reduced 15% No Script Fundus Photography W/ Report Visual Field Examination-Professional Angelita Visual Field Examination(s) Office/outpatient Visit, Est Optic Nerve Head Eval IPO Reduced 15% No Script Office/outpatient Visit, Est Fundus Photography W/ Report Office/outpatient Visit, Est Office/outpatient Visit, Est Optic Nerve Head Eval Visual Field Examination-Professional Ju -2007 Visual Field Examination(s) Office/outpatient Visit, Est Optic Nerve Head Eval Eye Exam Established Pt Eye Exam Established Pt Fundus Photography W/ Report Optic Nerve Topography Optic Nerve Topography Office/outpatient Visit, Est Corneal Pachymetry Visual Field Examination(s) Eye Exam Established Pt Office/outpatient Visit, Est Advance Directives Directive Yes / No Effective Date File Name No Information Encounters Encounter Description Practice Location Reason(s) For Visit Diagnoses Date Provider Providers Copied on Encounter [facility], [address] [place] [address] [address], [place], [place], [id number], tel:[phone] [facility] No Information 0 Krishnasamy Wil. [address], [place], [place], [facility], [place]. tel:[phone] Referring Provider: Wil sommer, [facility] Corporate [facility] [address], [place], [facility]. tel:[phone] [facility], [address] [place] [address] [address], [place], [place], [id number], tel:[phone] [facility] No Information 0 Krishnasamy Wil. [address], [place], [facility], [place]. tel:[phone] Referring Provider: Wil sommer, [facility] Corporate [facility] [address], [place], [facility]. tel:[phone] Office/outpat ient Visit, [facility] [place], [address] [place] [address] [address], [place], [place], [id number], [place] tel:[phone] [facility] No Information 0 Krishnasamy Wil. [address], [place], [facility], [place]. tel:[phone] Office/outpat ient Visit, [facility], [address] [place] [address] [address], [place], [place], [id number], [place] tel:[phone] [facility] No Information 0 Krishnasamy Wil. [address], [place], [facility], [place]. tel:[phone] Referring Provider: Wil sommer, [facility] Corporate [facility] [address], [place], [facility]. tel:[phone] [facility], [address], [place], [place], [id number], [place] tel:[phone] [facility] No Information Oct-0 5-200 9 Krishnasamy Wil. [address], [place], [facility], [place]. tel:[phone] Referring Provider: Wil sommer, [facility] Corporate [facility] [address], [place], [facility]. tel:[phone] [facility], [address], [place], [place], [id number], [place] tel:[phone] [facility] No Information 7-200 9 Krishnasamy Wil. [facility] [address], [place], [facility], [place]. tel:[phone] Referring Provider: Wil sommer, [facility] Corporate [facility] [address], [place], [facility]. tel:[phone] Office/outpat ient Visit, [facility], [address], [place], [place], [id number], [place] tel:[phone] [facility] No Information 2 2-200 9 Krishnasamy Wil. [facility] [address], [place], [address], [place]. tel:[phone] Office/outpat ient Visit, [facility], [address] [place] [address] [address], [place], [place], [id number], [place] tel:[phone] [facility] No Information 7-200 8 Krishnasamy Wil. [address], [place], [facility], [place]. tel:[phone] Referring Provider: Wil sommer, [address] [place], [place] [address]ate [place] [address], [place], [facility]. tel:[phone] Office/outpat ient Visit, [facility], [address] [place] [address] [address], [place], [place], [id number], [place] tel:[phone] [facility] No Information 2 0-200 8 Krishnasamy Wil. [address] [place] [address] [address], [place], [facility], [place]. tel:[phone] Office/outpat ient Visit, [facility], [address] [place] [address] [address], [place], [place], [id number], [place] tel:[phone] [facility] No Information 0 6-200 8 Krishnasamy Wil. [address] [place] [address] [address], [place], [facility], [place]. tel:[phone] [facility], [address] [place] [address] [address], [place], [place], [id number], [place] tel:[phone] [facility] No Information 1-200 8 Lucita March. [address] [place], [place] [address]ate [place] , [address], [place], [facility], [place]. tel:[phone] Referring Provider: Joaquim Grimaldo, [address] [place], [place] [address], [place], [facility]. tel:[phone] [facility], [address] [place] [address] [address], [place], [place], [address], [place] tel:[phone] [facility] No Information 4-200 8 Lucita March. [address] [place], [place] [address]ate [place] , [address], [place], [facility], [place]. tel:[phone] Referring Provider: Joaquim Grimaldo, [address], [place], [address]. tel:[phone] Office/outpat ient Visit, Est [facility], [address] [place] [address] [address], [place], [place], [id number], tel:[phone] [facility] No Information May-1 2-200 8 Lucita March. [facility] , [address], [place], [facility], [place]. tel:[phone] [facility], [address] [place] [address] [address], [place], [place], [id number], [place] tel:[phone] [facility] No Information 3 0-200 8 Lucita March. [facility] [address], [address], [place], [facility], [place]. tel:[phone] [facility], [address] [place] [address] [address], [place], [place], [id number], [place] tel:[phone] [facility] No Information Jan-2 8-200 7 Lucita March. [facility] [address], [address], [place], [facility], [place]. tel:[phone] Referring Provider: Betty Mcconnell [address], [place], [facility]. tel:[phone] [facility], [address] [place] [address] [address], [place], [place], [id number], [place] tel:[phone] [facility] No Information Jan-0 6-200 7 Lucita March. [address], [address], [place], [facility], [place]. tel:[phone] Referring Provider: Betty Mcconnell [address], [place], [facility]. tel:[phone] Office/outpat ient Visit, Est [facility], [address] [place] [address] [address], [place], [place], [id number], tel:[phone] [facility] No Information 1-200 7 Lucita March. [facility] , [address], [place], [facility], . tel:[phone] Referring Provider: Joaquim Grimaldo, [facility] [address], [place], [facility]. tel:[phone] [facility], [address] [place] [address] [address], [place], [place], [id number], tel:[phone] [facility] No Information 0 7-200 7 Lucita March. [facility] [address], [address], [place], [facility], . tel:[phone] Referring Provider: Joaquim Grimaldo, [facility] [address], [place], [facility]. tel:[phone] [facility], [address] [place] [address] [address], [place], [place], [id number], tel:[phone] [facility] No Information 2 5-200 7 Alessia Laura. [facility] [address], [address], [place], [facility], . tel:[phone] Office/outpat ient Visit, Est [facility], [address] [place] [address] [address], [place], [place], [id number], tel:[phone] [facility] No Information July-2 3-200 7 Lucita March. [facility] [address], [address], [place], [facility], . tel:[phone] Family History Family Member Type Diagnosis Age At Onset No Information Payers Payer name Insurance type Covered constitution party ID Authoriza tion(s) [place] [id number] [place] [id number] Social History Type Description Quantity Date Captured Comments Sex Female Smoking Status No Information Chief Complaint And Reason For Visit No Information Reason For Referral Reason For Referral No Information History Of Present Illness Encounter Date Complaint History Of Prese nt Illness No Information Functional Status Date Functional Assessmen t No Information Instructions Date Instruction Additional Infor mation No Information Assessments Type Assessment Date No Information Patient Care Teams Name Effective Dates (start - stop) Status Members No Information
--- OUTSIDE RECORDS SUMMARY | 2024-04-23 10:53 | XMS_ITS | Data Portability ---
Author Organization [place] [facility] [employer], Main Office Address [address] [place] [address] Care Team Providers Care Rehabilitation Therapist Name Role Phone JOSE BARNARD Primary Care Provider JOSE BARNARD Referring Provider [phone] Assessment Encounter Date Assessment Date Assessment LastModified by Organization Details LastModified Time 08/19/2022 08/19/2022 impression: Patient has significant anterior knee pain right knee without radiographic abnormality or effusion or other pathology. I suspect that her anterior knee pain syndrome the right knee is a direct result of her limited range of motion and function of the right hip which has now severe osteoarthritis. I reviewed her x-rays with her add as well as comparing these with the prior x-rays demonstrating the progression. I have discussed options with her. She has the option of trying to live with this utilizing nonsurgical strategies to keep her pain at a minimum and the option of total hip replacement of her right hip. I have given her the ortho info handout on total hip replacement as well as the direct anterior approach Booklet. She would like to try nonsurgical strategies initially. She has a cane at home and we will send her for physical therapy which she would like to try. We will show her range of motion exercises and how to use a cane left hand properly and adjust the height accordingly. She would like to try increasing her Aleve to 1 tablet twice daily. She denies any kidney problems liver problems or peptic ulcer disease. She does drink ensure every day to try to maintain her level of nutrition. I will see her back in 1 month to assess her progress. She would need to have any ongoing infection problem completely resolved before considering hip replacement surgery. 40 minutes were spent in total care this patient more than half the time spent in [id number] We will check a new height and weight on her return visit. 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 I have discussed surgery and recovery with her in detail as well as risks of surgery. She will need to stop her Premarin 1 month before surgery and stop the Aleve 1 week before surgery. We will need to obtain vascular Doppler arterial studies and ABIs to make sure she has adequate circulation as I could not feel pulses in the right foot today. She has seen Dr. Horner in the past and we will ask him to evaluate her for cardiac risk assessment for surgery. She has a 1 cm slightly raised patch of erythema mid pretibial on the right which she noticed 3 months ago. She has had multiple basal cell culture know Ms. And sees Dr. Kern , [facility] and plans to see Dr. Kern as soon as possible and it would be better for her to have the biopsy of this lesion before hip replacement rather than after. I would like her to have the surgery no sooner than 3 weeks from this biopsy providing the wound is satisfactorily healed. I have discussed risks of surgery with her detail. I explained OB numbness around the incision. Risk of infection blood clots bleeding transfusion fracture loosening dislocation leg length discrepancy need for revision surgery nerve injury heterotopic ossification and medical complications such as heart attack stroke pulmonary embolism and were reviewed. She will call us as soon as she has her right leg lesion biopsy scheduled. 40 minutes were spent in total care this patient with more than half the time spent in [id number] care. Not available 09/24/2022 15:57:42 12/21/2022 12/21/2022 HPI: Patient returns. She is here for follow-up of her right anterior total hip arthroplasty. She is 2 weeks out. She is on Lovenox injections daily. She has finished up her Celebrex and doxycycline. She is having minimal discomfort. She is only using occasional Tylenol for pain control. Physical exam: Patient's incision is well healed. Minimal swelling in the thigh. No swelling in lower extremities. She is walking with a walker. Impression: Patient is doing well 2 weeks out right anterior total hip arthroplasty. She will transition to the cane as her comfort allows. We will see her back at her 1 month follow-up with x-rays. Patient was supposed to have a CBC done a week out from surgery but I am not able to find this in the system. I did call her and left a message. I am not sure if the hospital gave her the script not. We will make sure she did have this done since she continues on the Lovenox. Not available 12/21/2022 10:53:43 01/06/2023 01/06/2023 Patient returns 4 weeks after right total hip arthroplasty. She is doing very well now. She complained of having severe fatigue the 1st week but since then she has regained most of her bigger again. She is very comfortable. She is walking well. She uses the cane when she leaves the house but walks in the house without any gait aid and is comfortable doing that. Her wound is nicely healed. She has no leg swelling. She has been using Lovenox for DVT prophylaxis. I think it will be fine for her to stop that at this time and I would like her to take a baby aspirin 1 tablet twice a day for another 2 weeks and then stop. She will wait until January 20 resume her Premarin. She is very symptomatic being off the Premarin would like to get back to this as soon as possible. She will wait until February 06 to start Aleve for the other areas of her body that gets sore and she asked about glucose to start that now she wishes. She will continue practicing with her walking and increasing her endurance. I will see her back in 1 month to assess her progress. If she has any problems she will call. Not available 01/15/2023 19:11:31 02/06/2023 02/06/2023 HPI: Patient returns. She is 2 months out from right total hip arthroplasty. Overall doing extremely well. She is very happy with her hip. She is back to all normal daily activities without any symptoms at all. Physical exam: Patient is walking very well today limp assistance. Again complaining no symptoms in right hip. Impression: Patient is now 2 months out right anterior total hip arthroplasty. She is very happy with her results. She is asymptomatic at this point. Long-term risk of infection was discussed. We will see her back at her 1 year anniversary or sooner if she has problems. Not available 02/06/2023 15:23:42 Plan of Treatment Reminders Order Date Submit Date Provider Last Modified By Organization Details Last Modified Time Details Appointments None recorded. Lab None recorded. Referral None recorded. Procedures None recorded. Surgeries None recorded. Imaging XR, knee 2022 023 [email or web address] [facility] [place], [address], [place], [address], 09:42:10 XR, hip + pelvis, unilateral 2022 023 [email or web address] [facility] [place], [address], [place], [address], 09:42:10 XR, hip + pelvis, unilateral 2022 023 [email or web address] [facility] [place], [address], [place], [address], 3 10:40:50 Medication Orders None recorded. Patient TargetsNo targets recorded. Patient InstructionsNo instructions recorded. Reason for Referral None Reported. Results Created Date Observation Date Name Description Value Unit Range Abnormal Flag Note LastModifiedBy Organization Detail LastModifiedTime 08/20/19 XR, knee No observ ation record ed. [facility] [place] [address], [place], [address], 08/21/2022 11:32:26 08/20/19 23 XR, hip + pelvi s, unila teral No observ ation record ed. [facility] [place] [address], [place], [address], 08/21/2022 11:34:20 10/11/19 23 10/10/2022 arter ial study , lower extre mity, compl ete No observ ation record ed. [email or web address] [place] [address] [address], [place], [address], 10/11/2022 13:11:08 12/01/19 23 11/16/2022 nelson sharlene bennett am No observ ation record ed. [email or web address] Not Available 2022 10:15:53 12/02/1911/29/2022 US, carot id arter y No observ ation record ed. [address], [place], [address], 12/05/2022 10:39:38 12/06/1912/05/2022 trans -thor acic echoc ardio gram (TTE) (PROC ) No observ ation record ed. [address] [facility] [address], [place], [address], 12/06/2022 11:45:52 12/08/19 23 12/07/2022 XR, hip + pelvi s, unila teral No observ ation record ed. [address], [place], [address], 12/07/2022 12:42:08 12/08/1912/07/2022 XR, hip + pelvi s, unila teral No observ ation record ed. [address], [place], [address], 12/07/2022 12:51:05 01/07/20 XR, hip + pelvi s, unila teral No observ ation record ed. [facility] [place] [address] [facility] [address], [place], [address], 01/15/2023 19:08:27 Result Notes None recorded. Problems Name Problem SNOMED Code Status Onset Date Resolution Date Notes Provider Name and Address Organization Details Recorded Time Pain of right ankle joint 4179900094003 9106 Active 2021 Not Available [facility] 03/01/202 3 07:31:25 Closed fracture of lateral malleolus 26584402 Active 2021 Not Available [facility] 3 07:31:25 Adhesive capsulitis of shoulder 558811250 Active Not Available [facility] 3 07:31:25 Pain of right knee joint 6675395994394 00 Active 2022 NABOR Reyes null, [place] [facility] 3 11:51:46 Pain in right hip joint 2603424856938 02 Active 2022 Mali Nogueira CMA null, [place] [facility] 3 13:05:58 Osteoarthr itis of right hip joint 7632055084919 07 Active 2022 Mali Nogueira CMA null, [place] [facility] 3 15:03:39 Osteoarthr itis 965906791 Active 2022 NABOR Reyes null, [place] [facility] 3 10:25:11 Problem Notes None recorded. Procedures Surgical History Date Name Laterality Status Provider Name and Address Organization Details Recorded Time Cataract Surgery completed Not Available [facility] 05/25/2022 07:26:55 Tonsillectomy completed Not Available [facility] 05/25/2022 07:26:55 Hysterectomy completed Not Available [facility] 05/25/2022 07:26:55 stapedectomy completed Not Available [facility] 05/25/2022 07:26:55 Breast reduction completed Not Available [facility] 05/25/2022 07:26:55 total replacement of right hip joint completed NABOR Reyes [place] [facility] 12/21/2022 09:53:58 Imaging Results Imaging Date Name Status LastModified by Organization Details LastModified Time 08/19/2022 XR, knee completed [facility] [place] [address], [place], [address], 08/21/2022 11:32:26 08/19/2022 XR, hip + pelvis, unilateral completed [facility] [place] [address], [place], [address], 08/21/2022 11:34:20 10/10/2022 arterial study, lower extremity, complete completed [email or web address] [address], [place], [address], 10/11/2022 13:11:08 11/16/2022 electrocardiogram completed [email or web address] Informa tion not available 11/30/2022 10:15:53 11/29/2022 US, carotid artery completed [address], [place], [address], 12/05/2022 10:39:38 12/05/2022 trans-thoracic echocardiogram (TTE) (PROC) completed [address] [facility] [address], [place], [address], 12/06/2022 11:45:52 12/07/2022 XR, hip + pelvis, unilateral completed [address], [place], [address], 12/07/2022 12:42:08 12/07/2022 XR, hip + pelvis, unilateral completed [address], [address], 12/07/2022 12:51:05 01/06/2023 XR, hip + pelvis, unilateral completed [facility] [place] [address] [facility] [address], [place], [address], 01/15/2023 19:08:27 Procedure Notes None recorded. Medical Equipment None Reported. Allergies No known drug allergies Medications Name Sig Start Date Stop Date Status Note LastModified by Organization Details LastModified Time senna s 8.6-50mg tablets TAKE 2 TABLETS BY MOUTH TWICE DAILY active Not Available Not Available No t Available amoxicillin 500 mg capsule TAKE 4 CAPSULES BY MOUTH 1 HOURS PRIOR TO APPOINTME NT active Not Available Not Available No t Available prednisone 10 mg tablet 08/27 completed Not Available Not Available Not Available polyethylen e glycol 3350 17 gram oral powder packet 02/06 completed Not Available Not Available Not Available azithromyci n 250 mg tablet TAKE 2 TABLETS BY MOUTH FOR 1 DAY THEN TAKE 1 TABLET BY MOUTH DAILY FOR 4 DAYS active Not Available Not Available No t Available ofloxacin 0.3 % eye drops INSTILL 1 DROP TO SURGICAL EYE FOUR TIMES DAILY BEGINNING AFTER SURGERY 12/21 completed Not Available Not Available Not Available valacyclovi r 1 gram tablet TK 2 TS PO NOW THEN 2 TS 12 HOURS LATER active Not Available Not Available No t Available acetaminoph en 500 mg tablet TAKE 2 TABLETS BY MOUTH EVERY 6 HOURS active Not Available Not Available No t Available amoxicillin 500 mg tablet TAKE FOUR TS PO 1 HOUR B DAPP active Not Available Not Available No t Available ketorolac 0.5 % eye drops 12/21 completed Not Available Not Available Not Available prednisone 10 mg tablets in a dose pack Take 1 tab by mouth, 3 times a day for 3 daysTake 1 tab by mouth 2 times a day for 2 daysTake 1 tab by mouth once a day for 1 day 08/27 completed Not Available Not Available Not Available cyclopentol ate 1 % eye drops INSTILL 1 DROP TO SURGICAL EYE TWICE DAILY BEGINNING AFTER SURGERY 12/21 completed Not Available Not Available Not Available prednisolon e acetate 1 % eye drops,suspe nsion SHAKE LIQUID AND INSTILL 1 DROP TO SURGICAL EYE EVERY HOUR WHILE AWAKE BEGINNING AFTER SURGERY 02/06 completed Not Available Not Available Not Available meclizine 25 mg tablet TAKE 1 TABLET BY MOUTH TWICE DAILY NEEDED FOR DIZZINESS active Not Available Not Available No t Available cephalexin 500 mg capsule TAKE 1 CAPSULE BY MOUTH TWICE DAILY FOR 7 DAYS 09/10 completed Not Available Not Available Not Available tobramycin 0.3 % eye drops 12/21 completed Not Available Not Available Not Available dorzolamide 22.3 mg-timolol 6.8 mg/mL eye drops INSTILL 1 DROP IN LEFT EYE TWICE DAILY 12/21 completed Not Available Not Available Not Available levofloxaci n 500 mg tablet TK 1 T PO QD 06/18 completed Not Available Not Available Not Available timolol maleate 0.5 % eye drops INSTILL 1 DROP INTO RIGHT EYE TWICE DAILY active Not Available Not Available No t Available celecoxib 100 mg capsule TAKE 1 CAPSULE BY MOUTH DAILY 01/06 completed Not Available Not Available Not Available atropine 1 % eye drops ADMINISTE R 1 DROP IN LEFT EYE TWICE DAILY 12/21 completed Not Available Not Available Not Available doxycycline hyclate 100 mg tablet TAKE 1 TABLET BY MOUTH EVERY 12 HOURS 01/06 completed Not Available Not Available Not Available oxycodone 5 mg tablet TAKE 1/2 TABLET BY MOUTH EVERY 4 HOURS NEEDED FOR PAIN 02/06 completed Not Available Not Available Not Available enoxaparin 40 mg/0.4 mL subcutaneou s syringe 02/06 completed Not Available Not Available Not Available moxifloxaci n 0.5 % eye drops INSTILL 1 DROP IN LEFT EYE EVERY HOUR DIRECTED 12/21 completed Not Available Not Available Not Available Premarin 0.625 mg tablet TAKE 1 TABLET BY MOUTH EVERY DAY active Not Available Not Available No t Available nitrofurant oin monohydrate /macrocryst als 100 mg capsule TAKE 1 CAPSULE BY MOUTH EVERY 12 HOURS 12/21 completed Not Available Not Available Not Available Boostrix Tdap 2.5 Lf unit-8 mcg-5 Lf/0.5 mL intramuscul ar syringe active Not Available Not Available N ot Available metronidazo le 1 % topical gel APPLY TOPICALLY TO FACE EVERY MORNING active Not Available Not Available No t Available brimonidine 0.2 %-timolol 0.5 % eye drops INSTILL 1 DROP IN BOTH EYES TWICE DAILY active Not Available Not Available No t Available Lumigan 0.01 % eye drops INSTILL 1 DROP IN BOTH EYES EVERY NIGHT AT BEDTIME 02/06 completed Not Available Not Available Not Available Rhopressa 0.02 % eye drops INSTILL 1 DROP IN BOTH EYES EVERY NIGHT 12/21 completed Not Available Not Available Not Available Fluzone High-Dose 7548-8484 (PF) 180 mcg/0.5 mL intramuscul ar syringe ADM 0.5ML IM UTD 09/10 completed Not Available Not Available Not Available Fluad 2018- 65yr up(PF)45 mcg(15 mcgx3)/0.5 mL intramuscul ar syringe ADM 0.5ML IM UTD 08/27 completed Not Available Not Available Not Available Paxlovid 300 mg (150 mg x 2)-100 mg tablets in a dose pack TK 2 NIRMATREL VIR TS AND 1 RITONAVIR T TOGETHER PO BID FOR 5 DAYS active Not Available Not Available No t Available Vitals None Recorded Social History Question Answer Notes LastModified by Organizat ion Details LastModified Time Tobacco Smoking Status Never Smoker Not Available [facility] 05/25/2022 07:26:50 What Is Your Level Of Alcohol Consumption? Occasional [id number] Information not available 05/25/2022 Sex: Unknown Functional Status None recorded. Mental Status None recorded. Family History Relationship Description Onset Age of this Age Resolved Age Notes LastModified by Organization Details LastModified Time Father Heart disease [id number] Not available 05/25/2022 07:26:57 Mother Hypertensive disorder [id number] Not available 05/25/2022 07:26:57 Medical History Condition Response BLINDNESS N KIDNEY STONES N MRSA N CARPAL TUNNEL SYNDROME N OTHER # 1 Y LUNG DISEASE/DISORDER N HISTORY OF DRUG ABUSE N COPD N RADIATION / CHEMOTHERAPY N SPORTS INJURY N ANKLE PAIN N BLOOD DISEASES N SCHIZOPHRENIA N SHINGLES N BOWEL PROBLEMS N SHOULDER PAIN N DEPRESSION (INCLUDING POST ) N STROKE/TIA N ULCERS N KNEE PAIN N BENIGN PROSTATIC HYPERPLASIA N OBESITY N GERD/NAUSEA N ANEURYSM N URINARY/BLADDER/KIDNEY PROBLEMS N CORONARY ARTERY DISEASE (CAD) N ADDICTION CONCERNS N USE OF BLOOD THINNERS N SKIN PROBLEMS Y EMPHYSEMA N MUSCLE,JOINT OR BONE PROBLEMS N DVT N STOMACH ULCERS N BLOOD CLOTS N USE OF NSAIDS N CONCUSSION OR SPINAL TRAUMA N NEUROPATHY N AIDS/HIV N FRACTURES N ELBOW PAIN N HYPERTENSION N TOURETTE'S N ANXIETY DISORDER N Metal allergy N BLOOD TRANSFUSION N ANEMIA/BLOOD DISORDER N BIPOLAR DISORDER N BRONCHITIS N OSTEOARTHRITIS N TUBERCULOSIS N FOOT PROBLEM N HEART VALVE DISORDERS N ALLERGIES/HAYFEVER N SOFT TISSUE INJURY N INFECTIOUS DISEASE N HEART ARRHYTHMIA N INSOMNIA N RHEUMATOID ARTHRITIS N HIGH CHOLESTEROL / HYPERLIPIDEMIA N EDEMA N CHRONIC PAIN SYNDROME N CAROTID BLOCKAGE N BACK / NECK PROBLEMS N HAVE YOU BEEN HOSPITALIZED OR SEEN IN [facility] ER IN THE PAST YEAR ? N BURSITIS N HERNIATED DISC N DIALYSIS N FIBROMYALGIA N OSTEOPOROSIS N ARTHRITIS Y NO SIGNIFICANT PAST MEDICAL HISTORY N PERIPHERAL NEUROPATHY N DIABETES, TYPE N HEARTBURN / REFLUX N HEPATITIS / LIVER DISEASE N GOUT N SLEEP DISORDER N ALZHEIMER'S DISEASE N HERPES N SEIZURES/EPILEPSY N HEADACHES/MIGRAINES N VASCULAR DISEASE N HIP PAIN N Blood Disorder N DIZZINESS N HEAD TRAUMA OR INJURY N HEART DISEASE/HEART PROBLEMS N MULTIPLE SCLEROSIS N CARDIAC ARRHYTHMIA N CANCER: SPECIFY N ANESTHESIA COMPLICATIONS N ATRIAL FIBRILLATION N AUTOIMMUNE DISEASE N Gynecological HistoryNo gynecological history recorded. Obstetrics History GPAL:G 0 P 0 0 0 0 Past Encounters Encounter ID Performer Location Encounter Start Date Encounter Closed Date Diagnosis/Indication Diagnosis SNOMED-CT Code Diagnosis ICD10 Code Diagnosis Note [id number] [facility] [place] [address] [place] [address] 06/18/2020 00:00:00 06/18/2020 14:49:26 [id number] [facility] [place] [address] [place] [address] 08/27/2021 00:00:00 08/30/2021 09:37:28 [id number] [facility] [place] [address] [place] [address] 09/10/2021 00:00:00 09/10/2021 11:02:24 [id number] [facility] [place] [address] [place] [address] 10/08/2021 00:00:00 10/08/2021 12:57:58 [id number] [facility] [place] [address] [place] [address] 11/01/2021 00:00:00 11/01/2021 14:35:08 [id number] Foreign Bhandari MD [facility] [place] [address] [place] [address] 08/19/2022 11:38:13 08/23/2022 09:42:10 Pain of right knee joint 7416309687 52515 M25.561 Pain in ri ght hip joint 7645782277 16087 M25.551 [id number] Foreign Bhandari MD [facility] [place] [address] [place] [address] 09/23/2022 10:21:17 09/26/2022 09:49:31 Osteoarthritis 875810829 M16.11 [id number] JONATHAN Rasheed [facility] [place] [address] [place] [address] 12/21/2022 09:34:52 12/21/2022 11:01:41 History of total replacement of left hip joint 8447540814 719496 Z96.107 [id number] Foreign Bhandari MD [facility] [place] [address] [place] [address] 01/06/2023 10:02:11 01/16/2023 10:40:50 History of total replacement of right hip joint 6181904036 51663 Z96.856 [id number] JONATHAN Rasheed [facility] [place] [address] [place] [address] 02/06/2023 14:47:40 02/06/2023 15:30:16 History of total replacement of right hip joint 7434947568 78608 Z96.641 Health Concerns Section Related Observation LastModified by Organization Detai ls LastModified Time None Recorded Concern Status LastModified by Organization Details LastModified Time None Recorded Advance Directives Directive None Recorded Payers Encounter Date Sequence Insurance Name Policy Number Policy Sunshine Covered Member ID Sunshine Member ID Guarantor Name 08/19/2022 1 [place] Sarah Carcamo Chintanedlar [id number] Sarah Szedlar 08/19/2022 2 [place] [id number] R Marilyn Sigalalar [id number] Sarah Szedlar 09/23/2022 1 [place] Sarah Carlos Alberto Woodsonedlar [id number] Sarah Szedlar 09/23/2022 2 [place] [id number] R Marilyn Woodsonedlar [id number] Sarah Szedlar 12/21/2022 1 [place] Sarah K Szedlar [id number] Sarah Szedlar 12/21/2022 2 [place] [id number] R Marilyn Woodsonedlar [id number] Sarah Armas 01/06/2023 1 [place] Armas [id number] Sarah Armas 01/06/2023 2 [facility] [id number] R Marilyn Armas [id number] Sarah Romeror 02/06/2023 1 [place] Sarah Armas [id number] Sarah Romeror 02/06/2023 2 [facility] [id number] R Marilyn Romeror [id number] Sarah Armas Notes Date Note Type Note Provider Name and Address Organization Details Recorded Time 08/19/2022 text/html Patient returns at this time for evaluation of her right knee. She has been having worsening symptoms since her minimally displaced right lateral malleolus fracture which occurred in July of 2021. She think using the cam walker boot aggravated her symptoms. She complains of pain on the right side. She has pain in her lower back and pain in her right hip and knee and right ankle but the pain is worst in her right hip and right knee. She takes Aleve every morning. She used to take it twice a day. She takes 2 Tylenol twice a day. She takes glucosamine Citracal +D Premarin. She has an joint very good health but is suffering from a significant problem with her eye. 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 She is still treating this. Her past history is significant for having stress test a few years ago with Dr. Horner. This was negative. She was having excessive fatigue at times. She continues to see him approximately once per year for follow-up but she is not thought to have any significant heart disease. Foreign Bhandari MD [address] [place] [address], [place] [address], [place], [address], [facility] [employer] Yub 08/21/2022 11:43:04 09/23/2022 text/html patient returns. We saw her 1 month ago and x-rays that time demonstrated severe type 1 osteoarthritis of the right hip which is snew-qk-qscw. She has been taking Aleve twice a day and that has helped some. She has been using a cane left hand. she went to physical therapy learned some range of motion exercises and strengthening exercises. She has decided that she like to proceed with hip replacement surgery. She had a problematic eye infection which has now completely resolved. Her teeth are fine. She takes Tylenol arthritis chronically. She has reviewed the booklet on direct anterior approach total hip arthroplasty as well as the Ortho info booklet on total hip replacement and had no additional questions about that today. Foreign Bhandari MD [address] [place] [address], [facility] [address], [place], [address], [place] - [facility] 09/24/2022 15:58:12 OBGyn Episode No OBEpisode recorded.
== END 2024-04-23 10:03 | disposition home or self-care (01) ==
LOC: ANHIMG 10:03
PROVIDERS: PCP Family Medicine; Visit Provider Obstetrics & Gynecology Gynecology
DX: Z78.0 Asymptomatic menopausal state (principal)
CPT/HCPCS: 77080

== ENCOUNTER 2024-10-12 08:54 | Outpatient (CLI) | payer MEDICARE, SELFPAY ==
--- OUTSIDE RECORDS SUMMARY | 2024-10-12 08:58 | XMS_ITS | Continuity of Care Document ---
Author Organization [facility] Address [address] [facility] [address] [place] [id number] Phone Care Team Providers Care Shipper/Receiver Name Role Phone Wil Maldonado Unavailable Unavailable [...] Diagnoses Date Provider Providers Copied on Encounter [facility] [place], [address] [place] [address] [address], [place], [place], [id number], tel:[phone] [facility] No Information 0 Krishnasamy Wil. [address], [place], [place], [facility] [place], [place]. tel:[phone] Referring Provider: Wil sommer, [facility] Corporate [facility] [address], [place], [place], [facility]. tel:[phone] [facility], [address] [place] [address] [address], [place], [place], [id number], tel:[phone] [facility] No Information 0 Krishnasamy Wil. [address], [place], [facility], [place]. tel:[phone] Referring Provider: Wil sommer, [facility] [address], [place], [facility]. tel:[phone] Office/outpat ient Visit, [facility], [address] [place] [address] [address], [place], [place], [id number], [place] tel:[phone] [facility] No Information 0 Krishnasamy Wil. [address], [place], [facility] [place], [place]. tel:[phone] Office/outpat ient Visit, [facility] Eye [facility] [place], [address] [place] [address] [address], [place], [place], [id number], [place] tel:[phone] [facility] No Information 0 Krishnasamy Wil. [address], [place], [facility] [place], [place]. tel:[phone] Referring Provider: Wil sommer, [facility] [address], [place], [facility]. tel:[phone] [facility] [place], [address], [place], [place], [id number], [place] tel:[phone] [facility] No Information Oct-0 5-200 9 Krishnasamy Wil. [address], [place], [facility] [place], [place]. tel:[phone] Referring Provider: Wil sommer, [facility] [address], [place], [facility]. tel:[phone] [facility] [place], [address], [place], [place], [address], [place] tel:[phone] [facility] No Information 7-200 9 Krishnasamy Wil. [facility] [address], [place], [facility], [place]. tel:[phone] Referring Provider: Wil sommer, [facility] [address], [place], [facility]. tel:[phone] Office/outpat ient Visit, [facility] [place], [address], [place], [place], [address], [place] tel:[phone] [facility] No Information 2 2-200 9 Krishnasamy Wil. [facility] [address], [place], [address], [place]. tel:[phone] Office/outpat ient Visit, [facility] Eye [facility] [place], [address] [place] [address] [address], [place], [place], [address], [place] tel:[phone] [facility] No Information 7-200 8 Krishnasamy Wil. [address], [place], [facility] [place], [place]. tel:[phone] Referring Provider: Wil sommer, [address] [place], [place] [address]ate [place] [address], [place], [facility]. tel:[phone] Office/outpat ient Visit, [facility] Eye [facility] [place], [address] [place] [address] [address], [place], [place], [id number], [place] tel:[phone] [facility] No Information 2 0-200 8 Krishnasamy Wil. [address] [place] [address] [address], [place], [facility] [place], [place]. tel:[phone] Office/outpat ient Visit, [facility] Eye [facility] [place], [address] [place] [address] [address], [place], [place], [id number], [place] tel:[phone] [facility] No Information 0 6-200 8 Krishnasamy Wil. [address] [place] [address] 102, [place], [facility], [place]. tel:[phone] [facility], [address] [place] [address] [address], [place], [place], [address], [place] tel:[phone] [facility] No Information 1-200 8 Lucita March. [address] [place], [place] [address]ate [place] , [address], [place], [facility] [place], [place]. tel:[phone] Referring Provider: Joaquim Grimaldo, [address] [place], [place] [address]ate [address], [place], [facility]. tel:[phone] [facility] [place], [address] [place] [address] [address], [place], [place], [id number], [place] tel:[phone] [facility] No Information 4-200 8 Lucita March. [address] [place], [place] [address]ate [place] , [address], [place], [facility], [place]. tel:[phone] Referring Provider: Joaquim Grimaldo, [address], [place], [address]. tel:[phone] Office/outpat ient Visit, Est [facility] [place], [address] [place] [address] [address], [place], [place], [address], tel:[phone] [facility] No Information May-1 2-200 8 Lucita March. [address] , [address], [place], [facility] [place], [place]. tel:[phone] [facility] [place], [address] [place] [address] [address], [place], [place], [id number], [place] tel:[phone] [facility] No Information 3 0-200 8 Lucita March. [facility] [place], [address], [place], [facility], [place]. tel:[phone] [facility] [place], [address] [place] [address] [address], [place], [place], [id number], [place] tel:[phone] [facility] No Information Jan-2 8-200 7 Lucita March. [facility] [place], [address], [place], [facility], [place]. tel:[phone] Referring Provider: Betty Mcconnell [address], [place], [facility]. tel:[phone] [facility] [place], [address] [place] [address] [address], [place], [place], [id number], [place] tel:[phone] [facility] No Information Jan-0 6-200 7 Lucita March. [address], [address], [place], [facility] [place], [place]. tel:[phone] Referring Provider: Betty Mcconnell [address], [place], [facility]. tel:[phone] Office/outpat ient Visit, Est [facility] [place], [address] [place] [address] [address], [place], [place], [id number], tel:[phone] [facility] No Information 1-200 7 Lucita March. [facility] , [address], [place], [facility], . tel:[phone] Referring Provider: Joaquim Grimaldo, [facility] [address], [place], [facility]. tel:[phone] [facility], [address] [place] [address] [address], [place], [place], [id number], tel:[phone] [facility] No Information 0 7-200 7 Lucita March. [facility] [address], [address], [place], [facility], . tel:[phone] Referring Provider: Joaquim Grimaldo, [facility] [address], [place], [facility]. tel:[phone] [facility], [address] [place] [address] [address], [place], [place], [id number], tel:[phone] [facility] No Information 2 5-200 7 Alessia Laura. [facility] [place], [address], [place], [facility], . tel:[phone] Office/outpat ient Visit, Est [facility], [address] [place] [address] [address], [place], [place], [id number], tel:[phone] [facility] No Information July-2 3-200 7 Lucita March. [facility] [place], [address], [place], [facility], . tel:[phone] Family History Family Member Type Diagnosis Age At Onset No Information Payers Payer name Insurance type Covered green party ID Authoriza tion(s) [place] [id number] [place] [id number] Social History Type Description Quantity Date Captured [...]
--- OUTSIDE RECORDS SUMMARY | 2024-10-12 08:58 | XMS_ITS | Clinical Summary ---
Author Organization [facility] [address] Address [address] [place] [address] Care Team Providers Care Head Paper Tester Name Role Phone Marc Hooks MD Primary Care Provider [phone] Allergies No known active allergies Medications estrogens, conjugated, (PREMARIN) 0.625 mg tablet Acti ve multivit-minera o-bueo-ycfoij tablet Take by mouth Active ANAND BIOTIN ORAL Take by mouth Active te-0-qda-epa-fi sh oil-vit D3 300-1,000-1,000 mg-mg-unit capsule Take by mouth Active brimonidine-sally oloL (COMBIGAN) 0.2-0.5 % ophthalmic solution Administer 1 drop into the right eye 2 (two) times a day Active carboxymethylce llulose (REFRESH LIQUIGEL) 1 % ophthalmic liquid gel drops Administer 1 drop into the left eye 2 (two) times a day Active acetaminophen ER (TYLENOL) 650 mg 8 hr tablet Take 1 tablet (650 mg total) by mouth nightly as needed for pain Active Active Problems Problem Noted Date Diagnosed Date Other fatigue 10/04/2024 Bilateral carotid bruits 11/15/2022 Left endophthalmia 03/20/2022 Assessment & Plan (03/21/2022 11:01 AM PRODUCTION ASSISTANT): #Bleb-related endophthalmitis OS -Patient seen by [facility] and s/p trab OS 4 weeks prior; seen 03/15 with concern for blebitis/bled-related endophtalmitis and seen by glaucoma/retina team at [facility] at that time. At that visit [facility] [...] prior). -s/p intravitreal vancomycin and ceftazidime 03/19; fswkoc-bs-pvexvgph exam 03/20 - 03/21 [facility] improved to HM, IOP 18. Nearly resolved hypopyon with clearer view to AC. Does have clumped fibrin on anterior lens capsule (see photos); still no view to back. Vitritis overall stable, possibly condensing a little more. Plan: -Continue vigamox q1h -Continue combigan BID OS -Continue BID OS (sent with sample of cyclogyl as atropine unavailable in clinic) -Pt to follow with local [facility]uoma and retina specialist tomorrow ([employer]). Discussed that we would be happy to continue to follow her here. She would like to follow locally first. Provided card with contact information for [facility]. (Patient's son can be reached at [phone]). -Discussed possible need for further injections and/or surgery as well moving forward as well as unclear visual prognosis again today. Patient and family voiced understanding. Assessment & Plan (03/20/2022 10:37 AM PRODUCTION ASSISTANT): #Bleb-related endophthalmitis OS -Patient seen by [employer] and s/p trab OS 4 weeks prior; seen 03/15 with concern for blebitis/bled-related endophtalmitis and seen by glaucoma/retina team at [facility] at that time. At that [...] present. B-scan with fairly stable vitreous debris. Plan: -continue vigamox q1h -continue combigan BID OS -will add atropine BID OS (sent with sample of cyclogyl as atropine unavailable in clinic) -RTC 03/21 10AM at [facility] (patient's son can be reached at [phone]). -Discussed possible need for further injections and/or surgery as well moving forward as well as unclear visual prognosis in detail today. Patient and family voiced understanding. Per patient/family, they would likely continue their care locally with retina specialist after the holiday . However if unable to get in contact with them on Monday will come here for subsequent follow-up. GUTIERREZ (dyspnea on exertion) 12/30/2019 PSVT (paroxysmal supraventricular tachycardia) 1 LBBB (left bundle branch block) 12/30/2019 Family history of premature CAD 12/30/2019 Dizziness and giddiness 12/30/2019 Abnormal echocardiogram 12/30/2019 Encounters Date Type Department Care Team Description 10/04/2024 11:30 AM CDT Office Visit [facility] Cardiology [address] [place] [address] Kae Romano NP PSVT (paroxysmal supraventricular tachycardia) (Primary Dx); LBBB (left bundle branch block); Other fatigue from Last 3 Months Surgical History Surgery Date Site/Laterality Comments TONSILLECTOMY [...] = 0.6 oz pur e alcohol) monthly Comments Unknown Sex and Gender Information Value Date Recorded Sex Assigned at Not on file Legal Sex Female 12:11 AM PRODUCTION ASSISTANT Gender Identity Not on file Sexual Orientation Not on file Obstetrics History Last Filed Vital Signs Vital Sign Reading Time Taken Comments Blood Pressure 138/80 10/04/2024 11:29 AM CDT Pulse 79 10/04/2024 11:29 AM CDT Temperature 37.5 C (99.5 F) 03/19/2022 11:17 AM PRODUCTION ASSISTANT Respiratory Rate 15 03/19/2022 11:1 7 AM PRODUCTION ASSISTANT Oxygen Saturation 98% 10/04/2024 11: 29 AM CDT Inhaled Oxygen Concentration - - Weight 51.6 kg (113 lb 12.8 oz) 025 11:29 AM CDT Height 160 cm (5' 3) 10/04/2024 11:29 AM CDT Body Mass Index 20.16 10/04/2024 11:29 AM CDT Plan of Treatment Health Maintenance Due Date Last Done Comments Depression Screening 1940 Fall Risk Assessment 1940 Osteoporosis Screening-Bone Density Scan 1940 Hepatitis B Screening 1960 Pneumococcal vaccine 65+ (1 of 1 - PCV) 1992 Zoster Vaccine (1 of 2) 1992 Well Visit 65+ 05/29/2007 Influenza Vaccine (#1) 2024 9, 01/29/2018, 12/28/2016, Additional history exists DTaP/Tdap/Td Vaccine (2 - Td or Tdap) 07/31/2028 07/31/2018 Insurance MEDICARE [facility] MEDICARE BLUE CROSS MEDICARE SUPPLEMENT [facility] MEDICARE Care Teams Head Paper Tester Relationship Specialty Start Date End Date Marc Hooks MD PCP - General Family Medicine 12/20/19
--- OUTSIDE RECORDS SUMMARY | 2024-10-12 08:58 | XMS_ITS | Referral Summary ---
Author Organization [facility] [address] [place] [address] [address] [place] [address] Care Team Providers Care Contracts Law Professor Name Role Phone Marc Hooks MD Primary Care Provider [phone] Encounters Date Type Department Care Team Description 10/04/2024 11:30 AM CDT Office Visit [facility] Cardiology [address] [facility] [address] [place] [address] Kae Romano NP PSVT (paroxysmal supraventricular tachycardia) (Primary Dx); LBBB (left bundle branch block); Other fatigue from Last 3 Months Allergies No known active allergies Medications estrogens, conjugated, (PREMARIN) 0.625 mg tablet Acti ve multivit-minera q-gaax-qxkrwo tablet Take by mouth Active ANAND BIOTIN ORAL Take by mouth Active gz-1-gch-epa-fi sh oil-vit D3 300-1,000-1,000 mg-mg-unit capsule Take [...] 03/20/2022 Assessment & Plan (03/21/2022 11:01 AM REEL FED PRINTER): #Bleb-related endophthalmitis OS -Patient seen by [facility] and s/p trab OS 4 weeks prior; seen 03/15 with concern for blebitis/bled-related endophtalmitis and seen by glaucoma/retina team at [facility] at that time. [facility] that visit [facility] [...] prior). -s/p intravitreal vancomycin and ceftazidime 03/19; pbdkbd-gm-nrykycmd exam 03/20 - 03/21 [facility] improved to [...] with local glacuoma and retina specialist tomorrow ([facility]). Discussed that we would be happy to continue to follow her here. She would like to follow locally first. Provided card with contact information for [facility]. (Patient's son can be reached at [phone]). -Discussed possible need for further injections and/or surgery as well moving forward as well as unclear visual prognosis again today. Patient and family voiced understanding. Assessment & Plan (03/20/2022 10:37 AM REEL FED PRINTER): #Bleb-related endophthalmitis OS -Patient seen by [facility] vision and s/p trab OS 4 weeks prior; seen 03/15 with concern for blebitis/bled-related endophtalmitis and seen by glaucoma/retina team at [facility] at that time. At that visit [...] unavailable in clinic) -RTC 03/21 10AM at [facility] (patient's son can be reached at [phone]). -Discussed possible need for further injections and/or [...] on file Legal Sex Female 12:11 AM REEL FED PRINTER Gender Identity Not on file Sexual Orientation Not on file Last Filed Vital Signs Vital Sign Reading Time Taken Comments Blood Pressure 138/80 10/04/2024 11:29 AM CDT Pulse 79 10/04/2024 11:29 AM CDT Temperature 37.5 C (99.5 F) 03/19/2022 11:17 AM REEL FED PRINTER Respiratory Rate 15 03/19/2022 11:1 7 AM REEL FED PRINTER Oxygen Saturation 98% 10/04/2024 11: 29 AM CDT Inhaled Oxygen Concentration - - Weight 51.6 kg (113 lb 12.8 oz) 025 11:29 AM CDT Height 160 cm (5' 3) 10/04/2024 11:29 AM CDT Body Mass Index 20.16 10/04/2024 11:29 AM CDT Plan of Treatment Not on file Insurance MEDICARE [facility] MEDICARE BLUE CROSS MEDICARE SUPPLEMENT [facility] MEDICARE Care Teams Contracts Law Professor Relationship Specialty Start Date End Date Marc Hooks MD PCP - General Family Medicine 12/20/19
[2024-10-12 09:45] LABS: Hematocrit 42.3 % (37.0-47.0); Hemoglobin 13.5 g/dL (12.0-15.0); Immature Granulocyte Percent A 0.3 % (0-0.5); Lymphocytes Absolute Auto 2.03 K/mm3 (0.9-3.2); Mean Corpuscular HGB Conc 31.9 g/dl (32-36); Mean Corpuscular Hemoglobin 31.9 pg (26-34); Mean Corpuscular Volume 100.0 fl (80-100); Nucleated Red Blood Cells Absolute Auto 0.000 K/mm3 (0.0-0.012); Nucleated Red Blood Cells Perc 0.0 % (0.0-0.2); Platelet Count Result 255 k/mm3 (150-375); Red Blood Count 4.23 M/mm3 (4.2-5.4); White Blood Count 6.3 K/mm3 (4.5-10.0)
[2024-10-12 10:20] LABS: Alanine Aminotransferase 15 U/L (6-35); Albumin Level 4.2 g/dL (3.5-5.1); Alkaline Phosphatase 54 U/L (38-126); Anion Gap 9 mmol/L (4-12); Aspartate Amino Transferase 32 U/L (14-36); Bilirubin,Total 0.7 mg/dL (0.2-1.3); Blood Urea Nitrogen 17 mg/dL (7-17); Calcium 9.2 mg/dL (8.4-10.2); Carbon Dioxide 26 mmol/L (22-30); Chloride 105 mmol/L (98-107); Estimated Glomerular Filt Rate > 60; Glucose 87 mg/dL (65-110); Potassium 4.2 mmol/L (3.4-5.0); Sodium 140 mmol/L (137-145); Total Protein 7.3 g/dL (6.3-8.2)
[2024-10-12 10:57] LABS: Thyroid Stimulating Hormone 0.360 uIU/mL (0.465-4.680)
[2024-10-12 11:21] LABS: Iron 90 ug/dL (37-170)
[2024-10-12 11:31] LABS: Percent Iron Saturation 26 % (20-50)
[2024-10-12 11:32] LABS: Vitamin B12 958.0 pg/mL (239-931)
[2024-10-12 11:39] LABS: Free T4 Free Thyroxine 0.86 ng/dL (0.78-2.19)
[2024-10-12 11:58] LABS: Ferritin 76.50 ng/mL (11.1-264)
== END 2024-10-12 08:55 | disposition home or self-care (01) ==
LOC: ANHLAB 08:56
PROVIDERS: PCP Family Medicine
DX: D64.9 Anemia, unspecified (principal); I10 Essential (primary) hypertension; E04.9 Nontoxic goiter, unspecified; E03.9 Hypothyroidism, unspecified; E55.9 Vitamin D deficiency, unspecified
CPT/HCPCS: 36415; 80053; 82306; 82607; 82728; 82746; 83540; 83550; 84439; 84443; 85025

== ENCOUNTER 2024-10-26 09:41 | Outpatient (CLI) | payer MEDICARE, SELFPAY ==
--- OUTSIDE RECORDS SUMMARY | 2024-10-26 09:45 | XMS_ITS | Referral Summary ---
Author Organization [facility] [address] [place] [address] 162 Address [address] [place] [address] Care Team Providers Care Mill Roll Rewinder Name Role Phone Marc Hooks MD Primary Care Provider Encounters Date Type Department Care Team Description 10/04/2024 11:30 AM CDT Office Visit [facility] [address] [facility] [address] [place] [address] Kae Romano NP PSVT (paroxysmal supraventricular tachycardia) (Primary Dx); LBBB (left bundle branch block); Other fatigue from Last 3 Months Allergies No known active allergies Medications estrogens, conjugated, (PREMARIN) 0.625 mg tablet Acti ve multivit-minera r-yfov-xcfyte tablet Take by mouth Active ANAND BIOTIN ORAL Take by mouth Active pq-7-wom-epa-fi sh oil-vit D3 300-1,000-1,000 mg-mg-unit capsule Take [...] 03/20/2022 Assessment & Plan (03/21/2022 11:01 AM CLAIM REPRESENTATIVE): #Bleb-related endophthalmitis OS -Patient seen by [facility] and s/p trab OS 4 weeks prior; seen 03/15 with concern for blebitis/bled-related endophtalmitis and seen by glaucoma/retina team at [facility] at that time. [facility] visit [facility] [...] prior). -s/p intravitreal vancomycin and ceftazidime 03/19; yvamya-tl-tpixeibt exam 03/20 - 03/21 [facility] improved to [...] with local glacuoma and retina specialist tomorrow ([facility]). Discussed that we would be happy to continue to follow her here. She would like to follow locally first. Provided card with contact information for [facility]. (Patient's son can be reached at [phone]). -Discussed possible need for further injections and/or surgery as well moving forward as well as unclear visual prognosis again today. Patient and family voiced understanding. Assessment & Plan (03/20/2022 10:37 AM CLAIM REPRESENTATIVE): #Bleb-related endophthalmitis OS -Patient seen by [facility] and s/p trab OS 4 weeks prior; seen 03/15 with concern for blebitis/bled-related endophtalmitis and seen by glaucoma/retina team at [facility] at that time. At that [...] in clinic) -RTC 03/21 10AM at [facility] (patient's son can be reached at [phone]). -Discussed possible need for further injections and/or [...] on file Legal Sex Female 12:11 AM CLAIM REPRESENTATIVE Gender Identity Not on file Sexual Orientation Not on file Last Filed Vital Signs Vital Sign Reading Time Taken Comments Blood Pressure 138/80 10/04/2024 11:29 AM CDT Pulse 79 10/04/2024 11:29 AM CDT Temperature 37.5 C (99.5 F) 03/19/2022 11:17 AM CLAIM REPRESENTATIVE Respiratory Rate 15 03/19/2022 11:1 7 AM CLAIM REPRESENTATIVE Oxygen Saturation 98% 10/04/2024 11: 29 AM CDT Inhaled Oxygen Concentration - - Weight 51.6 kg (113 lb 12.8 oz) 025 11:29 AM CDT Height 160 cm (5' 3) 10/04/2024 11:29 AM CDT Body Mass Index 20.16 10/04/2024 11:29 AM CDT Plan of Treatment Not on file Insurance MEDICARE [facility] MEDICARE BLUE CROSS MEDICARE SUPPLEMENT [facility] MEDICARE Care Teams Mill Roll Rewinder Relationship Specialty Start Date End Date Marc Hooks MD PCP - General Family Medicine 12/20/19
--- OUTSIDE RECORDS SUMMARY | 2024-10-26 09:45 | XMS_ITS | Continuity of Care Document ---
Author Organization [facility] Address [address] [place] [address] Phone Care Team Providers Care Aircraft Electronics Technical Officer Name Role Phone Wil Maldonado Unavailable Unavailable [...] Diagnoses Date Provider Providers Copied on Encounter [facility], [address] [place] [address] [address], [place], [place], [id number], tel:[phone] [facility] No Information 0 Krishnasamy Wil. [address], [place], [place], [facility], [place]. tel:[phone] Referring Provider: Wil sommer, [facility] Corporate [facility] [address], [place], [place], [facility]. tel:[phone] [facility], [address] [place] [address] [address], [place], [place], [id number], tel:[phone] [facility] No Information 0 Krishnasamy Wil. [address], [place], [place], [facility], [place]. tel:[phone] Referring Provider: Wil sommer, [facility] Corporate [facility] [address], [place], [facility]. tel:[phone] Office/outpat ient Visit, [facility], [address] [place] [address] [address], [place], [place], [id number], [place] tel:[phone] [facility] No Information 0 Krishnasamy Wil. [address], [place], [place], [facility], [place]. tel:[phone] Office/outpat ient Visit, [facility], [address] [place] [address] [address], [place], [place], [id number], [place] tel:[phone] [facility] No Information 0 Krishnasamy Wil. [address], [place], [facility], [place]. tel:[phone] Referring Provider: Wil sommer, [facility] Corporate [facility] [address], [place], [place], [facility]. tel:[phone] [facility], [address], [place], [place], [id number], [place] tel:[phone] [facility] No Information Oct-0 5-200 9 Krishnasamy Wil. [address], [place], [place], [facility], [place]. tel:[phone] Referring Provider: Wil sommer, [facility] Corporate [facility] [address], [place], [place], [facility]. tel:[phone] [facility], [address], [place], [place], [id number], [place] tel:[phone] [facility] No Information 7-200 9 Krishnasamy Wil. [facility] [address], [place], [place], [facility], [place]. tel:[phone] Referring Provider: Wil sommer, [facility] Corporate [facility] [address], [place], [place], [facility]. tel:[phone] Office/outpat ient Visit, [facility], [address], [place], [place], [id number], [place] tel:[phone] [facility] No Information 2 2-200 9 Krishnasamy Wil. [facility] [address], [place], [address], [place]. tel:[phone] Office/outpat ient Visit, [facility], [address] [place] [address] [address], [place], [place], [id number], [place] tel:[phone] [facility] No Information 7-200 8 Krishnasamy Wil. [address], [place], [place], [facility], [place]. tel:[phone] Referring Provider: Wil sommer, [address] [place], [place] [address]ate [address], [place], [place], [facility]. tel:[phone] Office/outpat ient Visit, [facility], [address] [place] [address] [address], [place], [place], [id number], [place] tel:[phone] [facility] No Information 2 0-200 8 Krishnasamy Wil. [address] [place] [address] 102, [place], [facility], [place]. tel:[phone] Office/outpat ient Visit, [facility], [address] [place] [address] [address], [place], [place], [id number], [place] tel:[phone] [facility] No Information 0 6-200 8 Krishnasamy Wil. [address] [place] [address] 102, [place], [facility], [place]. tel:[phone] [facility], [address] [place] [address] [address], [place], [place], [id number], [place] tel:[phone] [facility] No Information 1-200 8 Lucita March. [address] [place], [place] [address]ate Alzada , [address], [place], [place], [facility], [place]. tel:[phone] Referring Provider: Joaquim Grimaldo, [address] [place], [place] [address]ate Center [address], [place], [place], [facility]. tel:[phone] [facility], [address] [place] [address] [address], [place], [place], [id number], [place] tel:[phone] [facility] No Information 4-200 8 Lucita March. [address] [place], [place] [address]ate Alzada , [address], [place], [place], [facility], [place]. tel:[phone] Referring Provider: Joaquim Grimaldo, [address], [place], [address]. tel:[phone] Office/outpat ient Visit, Est [facility], [address] [place] [address] [address], [place], [place], [id number], tel:[phone] [facility] No Information May-1 2-200 8 Lucita March. [facility] , [address], [place], [facility], [place]. tel:[phone] [facility], [address] [place] [address] [address], [place], [place], [id number], [place] tel:[phone] [facility] No Information 3 0-200 8 Lucita March. Betty [facility] [address], [address], [place], [facility], [place]. tel:[phone] [facility], [address] [place] [address] [address], [place], [place], [id number], [place] tel:[phone] [facility] No Information Jan-2 8-200 7 Lucita March. [facility] [place], [address], [place], [facility], [place]. tel:[phone] Referring Provider: Betty Mcconnell [address], [place], [facility]. tel:[phone] [facility], [address] [place] [address] [address], [place], [place], [id number], [place] tel:[phone] [facility] No Information Jan-0 6-200 7 Lucita March. [address], [address], [place], [facility], [place]. tel:[phone] Referring Provider: Betty Mcconnell [address], [place], [facility]. tel:[phone] Office/outpat ient Visit, Est [facility], [address] [place] [address] [address], [place], [place], [address], tel:[phone] [facility] No Information 1-200 7 Lucita March. [facility] , [address], [place], [facility], . tel:[phone] Referring Provider: Joaquim Grimaldo, Betty [facility] [address], [place], [facility]. tel:[phone] [facility], [address] [place] [address] [address], [place], [place], [address], tel:[phone] [facility] No Information 0 7-200 7 Lucita March. [facility] [address], [address], [place], [facility], . tel:[phone] Referring Provider: Joaquim Grimaldo, Betty [facility] [address], [place], [facility]. tel:[phone] [facility], [address] [place] [address] [address], [place], [place], [id number], tel:[phone] [facility] No Information 2 5-200 7 Alessia Laura. [facility] [address], [address], [place], [facility], . tel:[phone] Office/outpat ient Visit, Est [facility], [address] [place] [address] [address], [place], [place], [id number], tel:[phone] [facility] No Information July-2 3-200 7 Lucita March. [facility] [address], [address], [place], [facility], . tel:[phone] Family History Family Member Type Diagnosis Age At Onset No Information Payers Payer name Insurance type Covered republican ID Authoriza tion(s) [place] [id number] [place] Commercial [place] [id number] Social History Type Description Quantity Date Captured [...]
--- OUTSIDE RECORDS SUMMARY | 2024-10-26 09:45 | XMS_ITS | Clinical Summary ---
Author Organization [facility] [address] Address [address] [place] [address] Care Team Providers Care Field Director Name Role Phone Marc Hooks MD Primary Care Provider [phone] Allergies No known active allergies Medications estrogens, conjugated, (PREMARIN) 0.625 mg tablet Acti ve multivit-minera t-lyai-xhhkqb tablet Take by mouth Active ANAND BIOTIN ORAL Take by mouth Active ji-5-oie-epa-fi sh oil-vit D3 300-1,000-1,000 mg-mg-unit capsule Take [...] 03/20/2022 Assessment & Plan (03/21/2022 11:01 AM DIRECTOR SEARCH): #Bleb-related endophthalmitis OS -Patient seen by [facility] and s/p trab OS 4 weeks prior; seen 03/15 with concern for blebitis/bled-related endophtalmitis and seen by glaucoma/retina team at [facility] at that time. [facility] visit [facility] [...] prior). -s/p intravitreal vancomycin and ceftazidime 03/19; sbbnco-qi-wadplngx exam 03/20 - 03/21 [facility] improved to [...] with local glacuoma and retina specialist tomorrow ([facility]). Discussed that we would be happy to continue to follow her here. She would like to follow locally first. Provided card with contact information for [facility]. (Patient's son can be reached at [phone]). -Discussed possible need for further injections and/or surgery as well moving forward as well as unclear visual prognosis again today. Patient and family voiced understanding. Assessment & Plan (03/20/2022 10:37 AM DIRECTOR SEARCH): #Bleb-related endophthalmitis OS -Patient seen by [facility] and s/p trab OS 4 weeks prior; seen 03/15 with concern for blebitis/bled-related endophtalmitis and seen by glaucoma/retina team at [facility] at that time. At that visit [...] unavailable in clinic) -RTC 03/21 10AM at [facility] (patient's son can be reached at [phone]). -Discussed possible need for further injections and/or [...] Description 10/04/2024 11:30 AM CDT Office Visit [facility] Cardiology [address] [place] [address] Kae Romano NP PSVT (paroxysmal [...] on file Legal Sex Female 12:11 AM DIRECTOR SEARCH Gender Identity Not on file Sexual Orientation Not on file Obstetrics History Last Filed Vital Signs Vital Sign Reading Time Taken Comments Blood Pressure 138/80 10/04/2024 11:29 AM CDT Pulse 79 10/04/2024 11:29 AM CDT Temperature 37.5 C (99.5 F) 03/19/2022 11:17 AM DIRECTOR SEARCH Respiratory Rate 15 03/19/2022 11:1 7 AM DIRECTOR SEARCH Oxygen Saturation 98% 10/04/2024 11: 29 AM [...] Td or Tdap) 07/31/2028 07/31/2018 Insurance MEDICARE [facility] MEDICARE BLUE CROSS MEDICARE SUPPLEMENT [facility] MEDICARE Care Teams Field Director Relationship Specialty Start Date End Date Marc Hooks MD PCP - General Family Medicine 12/20/19
[2024-10-26 10:48] LABS: Thyroid Stimulating Hormone 2.440 uIU/mL (0.465-4.680)
[2024-10-26 11:24] LABS: Vitamin B12 831.0 pg/mL (239-931)
[2024-10-27 07:07] LABS: Cytomegalovirus (CMV) Ab, IgG <0.60 U/mL (0.00-0.59); Cytomegalovirus (CMV) Ab, IgM <30.0 AU/mL (0.0-29.9)
[2024-10-28 13:08] LABS: EBV Nuclear Antigen Ab, IgG 441.0 U/mL (0.0-17.9)
== END 2024-10-26 09:42 | disposition home or self-care (01) ==
PROVIDERS: PCP Family Medicine
DX: D72.821 Monocytosis (symptomatic) (principal); E03.9 Hypothyroidism, unspecified; R79.89 Other specified abnormal findings of blood chemistry
CPT/HCPCS: 36415; 82607; 82746; 84443; 86644; 86645; 86664; 86665

== ENCOUNTER 2025-02-12 12:50 | Outpatient (CLI) | payer MEDICARE, SELFPAY ==
--- NOTE | ~2025-02-12 | MM_ITS ---
EXAMINATION: MM screening terri BI w ana HISTORY: Screening TECHNIQUE: Craniocaudal and mediolateral oblique 3-D tomosynthesis images were obtained and synthetic 2-D images were generated. CAD analysis was submitted and interpreted. COMPARISON: Comparison to multiple prior studies sequentially, with oldest reviewed study dated , 09/07/2017 BREAST PARENCHYMAL COMPOSITION: Not Dense: There are scattered areas of fibroglandular density. FINDINGS: There is no evidence of suspicious mass, calcification, or architectural distortion to suggest malignancy in either breast. IMPRESSION: 1. No mammographic evidence of malignancy. 2. Recommend routine screening mammography in one year. BI-RADS Category 1: Negative Reviewed, dictated and finalized at location B. [place] FINANCIAL COORDINATOR
== END 2025-02-12 12:51 | disposition home or self-care (01) ==
LOC: MICIMG 12:51
PROVIDERS: PCP Family Medicine; Visit Provider Obstetrics & Gynecology Gynecology
DX: Z12.31 Encounter for screening mammogram for malignant neoplasm of breast (principal)
CPT/HCPCS: 77063; 77067